=== PATIENT | male | born 1935 | race Caucasian/White ===

== ENCOUNTER 2017-11-26 14:36 | Inpatient (IN) | payer MEDICARE, BC ==
[2017-11-26] MEDS ORDERED: FUROSEMIDE 10 MG/ML 4 ML VIAL IV STA (15:04)
--- NOTE | 2017-11-26 15:11 | ED ---
General Adult HPI - General Chief complaint: Shortness of Breath Stated complaint: Feet swollen going up to waist Time Seen by Provider: 11/26/17 14:54 Source: patient, family, RN notes reviewed Mode of arrival: wheelchair Limitations: no limitations - History of Present Illness Initial comments: Patient is a pleasant 82-year-old male presenting to the emergency department with increasing edema. Patient does have a history of known edema. Symptoms have worsened over the past couple of weeks. Patient is on Lasix already. Patient does admit to having some edema however seems to downplay of symptoms. Patient denies any dyspnea. Patient denies fatigue however feels patient has been more fatigued. - Related Data Allergies Allergy/AdvReac Type Severity Reaction Status Date / Time No Known Allergies Allergy Verified 11/26/17 14:43 Review of Systems ROS Statement: Those systems with pertinent positive or pertinent negative responses have been documented in the HPI. ROS Other: All systems not noted in ROS Statement are negative. Constitutional: Denies: fever Eyes: Denies: eye pain ENT: Denies: ear pain Respiratory: Denies: cough Cardiovascular: Reports: edema. Denies: chest pain Endocrine: Reports: fatigue Gastrointestinal: Denies: abdominal pain Genitourinary: Denies: dysuria Musculoskeletal: Denies: back pain Skin: Denies: rash Neurological: Denies: headache Past Medical History Additional Past Medical History / Comment(s): Heart Failure, CLL History of Any Multi-Drug Resistant Organisms: None Reported Past Surgical History: No Surgical Hx Reported Past Psychological History: No Psychological Hx Reported Smoking Status: Never smoker Past Alcohol Use History: None Reported Past Drug Use History: None Reported General Exam Limitations: no limitations General appearance: alert, in no apparent distress Head exam: Present: atraumatic Eye exam: Present: normal appearance, PERRL ENT exam: Present: normal oropharynx Neck exam: Present: normal inspection Respiratory exam: Present: normal lung sounds bilaterally Cardiovascular Exam: Present: regular rate, normal rhythm GI/Abdominal exam: Absent: tenderness Extremities exam: Present: pedal edema (+3 edema bilaterally that does extend to upper thighs.). Absent: calf tenderness Neurological exam: Present: alert Psychiatric exam: Present: normal affect, normal mood Skin exam: Present: normal color Course Vital Signs 11/26/17 11/26/17 14:40 15:10 Temperature 98.0 F Pulse Rate 75 Respiratory 16 20 Rate Blood Pressure 118/60 O2 Sat by Pulse 92 L Oximetry EKG Findings - EKG Comments: EKG Findings:: Accelerated junctional rhythm with a rate of 82 with frequent PVCs. QRS 92. QT 406. QTc 474. Left axis. Incomplete right bundle-branch block. Septal Q waves. No acute ST change. Medical Decision Making - Medical Decision Making Patient reevaluated and resting comfortably in bed. Patient and family updated on results and plan. Dr. Blanco has been paged for admission. - Radiology Data Radiology results: image reviewed (Chest x-ray shows nonobstructive gas pattern. ) Disposition Clinical Impression: GI hemorrhage Disposition: ADMITTED IP TO THIS HOSP Is patient prescribed a controlled substance at d/c from ED?: No Referrals: Liban Riggs MD [Primary Care Provider] - 1-2 days Decision Time: 15:17
[2017-11-26 15:27] LABS: HCT 36.5 % (39.0-53.0); MCH 31.9 pg (25.0-35.0); MCHC 32.8 g/dL (31.0-37.0); MCV 97.3 fL (80.0-100.0); Mean Platelet Volume 7.8; RBC 3.75 m/uL (4.30-5.90); RDW 15.3 % (11.5-15.5); WBC 9.1 k/uL (3.8-10.6)
[2017-11-26 15:29] LABS: Platelet Count 51 k/uL (150-450)
[2017-11-26 15:32] LABS: INR 1.2 (<1.2); Partial Thromboplastin Time 22.6 sec (22.0-30.0); Prothrombin Time 11.9 sec (9.0-12.0)
[2017-11-26 15:39] LABS: Albumin 3.5 g/dL (3.5-5.0); Potassium 3.2 mmol/L (3.5-5.1); Total Bilirubin 0.8 mg/dL (0.2-1.3); Total Protein 5.3 g/dL (6.3-8.2)
--- NOTE | 2017-11-26 15:43 | XR ---
EXAMINATION TYPE: XR chest 2V DATE OF EXAM: 11/26/2017 COMPARISON: NONE HISTORY: Shortness of breath TECHNIQUE: Frontal and lateral views of the chest are obtained. FINDINGS: Scattered senescent parenchymal changes noted. Hyperinflation compatible with COPD. Bilateral pleural effusions left greater than right with underlying atelectasis and/or infiltrates. Heart size is stable. Mediastinal structures are stable and grossly unremarkable. No evidence for hilar prominence. Degenerative changes dorsal spine. IMPRESSION: 1.Bilateral pleural effusions left greater than right with underlying atelectasis and/or infiltrates.
[2017-11-26 15:46] LABS: Lymphocytes # (M) 6.73 k/uL (1.0-4.8); Monocytes # (M) 0.18 k/uL (0-1.0); Neutrophils # (M) 2.18 k/uL (1.3-7.7); Neutrophils % (M) 24 %; Nucleated Red Blood Cells 0 /100 WBC (0-0); Total Cells Counted 100
[2017-11-26 16:02] LABS: Troponin I 0.289 ng/mL (0.000-0.034)
[2017-11-26 16:06] LABS: Creatine Kinase MB 2.5 ng/mL (0.0-2.4)
--- NOTE | 2017-11-26 16:10 | ED ---
Medical Decision Making - Medical Decision Making Patient reevaluated. Patient and family updated. Case was discussed with Dr. vega with [facility] [place] physician who will admit for hospital call. - Lab Data Result diagrams: 11/26/17 15:06 11/26/17 15:06 Lab Results 11/26/17 11/26/17 11/26/17 Range/Units 15:06 15:06 15:06 WBC 9.1 (3.8-10.6) k/uL RBC 3.75 L (4.30-5.90) m/uL Hgb 12.0 L (13.0-17.5) gm/dL Hct 36.5 L (39.0-53.0) % MCV 97.3 (80.0-100.0) fL MCH 31.9 (25.0-35.0) pg MCHC 32.8 (31.0-37.0) g/dL RDW 15.3 (11.5-15.5) % Plt Count 51 L (150-450) k/uL Neutrophils % (Manual) 24 % Lymphocytes % (Manual) 74 % Monocytes % (Manual) 2 % Neutrophils # (Manual) 2.18 (1.3-7.7) k/uL Lymphocytes # (Manual) 6.73 H (1.0-4.8) k/uL Monocytes # (Manual) 0.18 (0-1.0) k/uL Nucleated RBCs 0 (0-0) /100 WBC Manual Slide Review Performed RBC Morphology Normal PT (9.0-12.0) sec INR (<1.2) APTT (22.0-30.0) sec Sodium 140 (137-145) mmol/L Potassium 3.2 L (3.5-5.1) mmol/L Chloride 96 L (98-107) mmol/L Carbon Dioxide 32 H (22-30) mmol/L Anion Gap 12 mmol/L BUN 34 H (9-20) mg/dL Creatinine 1.01 (0.66-1.25) mg/dL Est GFR (CKD-EPI)AfAm 79 (>60 ml/min/1.73 sqM) Est GFR (CKD-EPI)NonAf 68 (>60 ml/min/1.73 sqM) Glucose 125 H (74-99) mg/dL Calcium 9.0 (8.4-10.2) mg/dL Total Bilirubin 0.8 (0.2-1.3) mg/dL AST 32 (17-59) U/L ALT 26 (21-72) U/L Alkaline Phosphatase 122 (38-126) U/L Total Creatine Kinase 54 L (55-170) U/L CK-MB (CK-2) 2.5 H* (0.0-2.4) ng/mL CK-MB (CK-2) Rel Index 4.6 Troponin I 0.289 H* (0.000-0.034) ng/mL Total Protein 5.3 L (6.3-8.2) g/dL Albumin 3.5 (3.5-5.0) g/dL 11/26/17 Range/Units 15:06 WBC (3.8-10.6) k/uL RBC (4.30-5.90) m/uL Hgb (13.0-17.5) gm/dL Hct (39.0-53.0) % MCV (80.0-100.0) fL MCH (25.0-35.0) pg MCHC (31.0-37.0) g/dL RDW (11.5-15.5) % Plt Count (150-450) k/uL Neutrophils % (Manual) % Lymphocytes % (Manual) % Monocytes % (Manual) % Neutrophils # (Manual) (1.3-7.7) k/uL Lymphocytes # (Manual) (1.0-4.8) k/uL Monocytes # (Manual) (0-1.0) k/uL Nucleated RBCs (0-0) /100 WBC Manual Slide Review RBC Morphology PT 11.9 (9.0-12.0) sec INR 1.2 H (<1.2) APTT 22.6 (22.0-30.0) sec Sodium (137-145) mmol/L Potassium (3.5-5.1) mmol/L Chloride (98-107) mmol/L Carbon Dioxide (22-30) mmol/L Anion Gap mmol/L BUN (9-20) mg/dL Creatinine (0.66-1.25) mg/dL Est GFR (CKD-EPI)AfAm (>60 ml/min/1.73 sqM) Est GFR (CKD-EPI)NonAf (>60 ml/min/1.73 sqM) Glucose (74-99) mg/dL Calcium (8.4-10.2) mg/dL Total Bilirubin (0.2-1.3) mg/dL AST (17-59) U/L ALT (21-72) U/L Alkaline Phosphatase (38-126) U/L Total Creatine Kinase (55-170) U/L CK-MB (CK-2) (0.0-2.4) ng/mL CK-MB (CK-2) Rel Index Troponin I (0.000-0.034) ng/mL Total Protein (6.3-8.2) g/dL Albumin (3.5-5.0) g/dL - Radiology Data Radiology results: image reviewed (Chest x-ray showed bilateral effusions) Disposition Clinical Impression: Congestive heart failure Disposition: ADMITTED IP TO THIS [facility] Condition: Serious Is patient prescribed a controlled substance at d/c from ED?: No Referrals: Liban Riggs MD [Primary Care Provider] - 1-2 days Decision Time: 16:10
[2017-11-26] MEDS ORDERED: NALOXONE 0.4 MG/ML 1 ML VIAL IV PRN (16:59)
[2017-11-26] MEDS ORDERED: ACETAMINOPHEN TAB 325 MG TAB PO PRN (16:59)
[2017-11-26] MEDS ORDERED: ONDANSETRON 4 MG/2 ML VIAL IVP PRN (16:59)
--- NOTE | 2017-11-26 17:18 | P.HPIM ---
History of Present Illness H&P Date: 11/26/17 Chief Complaint: Anasarca Patient is an 82-year-old male with a known history significant for CLL previously on chemotherapy however now in remission, BPH on doxazosin and finasteride, arrhythmia which the patient and do not know what the arrhythmia is, and chronic lower extremity edema of unclear etiology on Lasix 40 mg and metolazone 5 mg daily. Patient presents to the ED complaining of worsening bilateral lower extremity edema which has progressed, today was unable to button up his pants due to anasarca. Patient states he really hasn't been short of breath, only complaint is his increasing edema. In the ED found to have a platelet count decreased at 51, elevated troponin of 0.289, elevated proBNP 8080 and a chest x-ray showing bilateral pleural effusions left-sided greater than right. Patient denies any chest pain or pressure. States she really has been short of breath, pulse ox 92% on room air and was placed on 2 L of oxygen while in the ED. Review of Systems CONSTITUTIONAL: No weight loss, fever, chills HEENT: Eyes: No visual loss, blurred vision, double vision or yellow sclerae. Ears, Nose, Throat: No hearing loss, sneezing, congestion, runny nose or sore throat. SKIN: No rash or itching. CARDIOVASCULAR: No chest pain, chest pressure or chest discomfort. No palpitations. ++ edema. RESPIRATORY: No shortness of breath, cough or sputum. GASTROINTESTINAL: No anorexia, nausea, vomiting or diarrhea. No abdominal pain or blood. GENITOURINARY: No burning on urination. No change in frequency. No change in stream. NEUROLOGICAL: No headache, dizziness, syncope, paralysis, ataxia, numbness or tingling in the extremities. No change in bowel or bladder control. MUSCULOSKELETAL: No muscle, back pain, joint pain or stiffness. HEMATOLOGIC: No anemia, bleeding or bruising. PSYCHIATRIC: No history of depression or anxiety. ENDOCRINOLOGIC: No reports of sweating, cold or heat intolerance. No polyuria or polydipsia. ALLERGIES: No history of asthma, hives, eczema or rhinitis. Past Medical History Past Medical History: Prostate Disorder Additional Past Medical History / Comment(s): Edema of unclear etiology, CLL, unknown arrhythmia History of Any Multi-Drug Resistant Organisms: None Reported Past Surgical History: No Surgical Hx Reported Past Psychological History: No Psychological Hx Reported Smoking Status: Never smoker Past Alcohol Use History: None Reported Past Drug Use History: None Reported - Past Family History Father Family Medical History: No Reported History Medications and Allergies Home Medications Medication Instructions Recorded Confirmed Type Docusate [Colace] 100 mg PO TID 11/26/17 11/26/17 History Doxazosin Mesylate 8 mg PO DAILY 11/26/17 11/26/17 History Finasteride [Proscar] 5 mg PO DAILY@1200 11/26/17 11/26/17 History Furosemide [Lasix] 40 mg PO DAILY 11/26/17 11/26/17 History Metolazone [Zaroxolyn] 5 mg PO DAILY 11/26/17 11/26/17 History Allergies Allergy/AdvReac Type Severity Reaction Status Date / Time No Known Allergies Allergy Verified 11/26/17 15:34 Physical Exam Vitals: Vital Signs Temp Pulse Resp BP Pulse Ox 11/26/17 16:38 72 18 135/74 98 11/26/17 15:43 72 18 127/81 99 11/26/17 15:10 20 11/26/17 14:40 98.0 F 75 16 118/60 92 L Intake and Output 11/26/17 11/26/17 11/26/17 06:59 14:59 22:59 Other: Weight 81.647 kg General: A/O x 3, NAD, Lying in bed comfortably HEENT: EOMI, MMM, atraumatic normocephalic Neck: Supple. No JVD, trachea midline CVS: Irregular rate and rhythm. + S1/S2, no murmurs/gallops/rubs appreciated Respiratory: Bilateral air entry noted. Clear to auscultation, no wheeze, no rhonchi Abdomen: Soft, nontender, nondistended. Bowel sounds audible Extremities: 3+ pitting edema past hips. No clubbing or cyanosis Skin: Bilteral lower extremity venous stasis ulcers Psych: Without hallucinations, abnormal affect, or abnormal behaviors during the examination Results CBC & Chem 7: 11/26/17 15:06 11/26/17 15:06 Labs: Abnormal Lab Results - Last 24 Hours (Table) 11/26/17 11/26/17 11/26/17 Range/Units 15:06 15:06 15:06 RBC 3.75 L (4.30-5.90) m/uL Hgb 12.0 L (13.0-17.5) gm/dL Hct 36.5 L (39.0-53.0) % Plt Count 51 L (150-450) k/uL Lymphocytes # (Manual) 6.73 H (1.0-4.8) k/uL INR (<1.2) Potassium 3.2 L (3.5-5.1) mmol/L Chloride 96 L (98-107) mmol/L Carbon Dioxide 32 H (22-30) mmol/L BUN 34 H (9-20) mg/dL Glucose 125 H (74-99) mg/dL Total Creatine Kinase 54 L (55-170) U/L CK-MB (CK-2) 2.5 H* (0.0-2.4) ng/mL Troponin I 0.289 H* (0.000-0.034) ng/mL Total Protein 5.3 L (6.3-8.2) g/dL 11/26/17 Range/Units 15:06 RBC (4.30-5.90) m/uL Hgb (13.0-17.5) gm/dL Hct (39.0-53.0) % Plt Count (150-450) k/uL Lymphocytes # (Manual) (1.0-4.8) k/uL INR 1.2 H (<1.2) Potassium (3.5-5.1) mmol/L Chloride (98-107) mmol/L Carbon Dioxide (22-30) mmol/L BUN (9-20) mg/dL Glucose (74-99) mg/dL Total Creatine Kinase (55-170) U/L CK-MB (CK-2) (0.0-2.4) ng/mL Troponin I (0.000-0.034) ng/mL Total Protein (6.3-8.2) g/dL Thrombosis Risk Factor Assmnt - DVT/VTE Prophylaxis DVT/VTE Prophylaxis: Mechanical Prophylaxis ordered Assessment and Plan (1) Anasarca Current Visit: Yes Status: Acute Code(s): R60.1 - GENERALIZED EDEMA SNOMED Code(s): 230028671 (2) BPH (benign prostatic hyperplasia) Current Visit: Yes Status: Acute Code(s): N40.0 - BENIGN PROSTATIC HYPERPLASIA WITHOUT LOWER URINRY TRACT SYMP SNOMED Code(s): 261063099 (3) Thrombocytopenia Current Visit: Yes Status: Acute Code(s): D69.6 - THROMBOCYTOPENIA, UNSPECIFIED SNOMED Code(s): 198449046 Plan: Presents with anasarca, is on chronic home diuretics of Lasix and metolazone both daily, 40 mg and 5 mg respectively. Patient and deny an underlying history of congestive heart failure that they know of, states that if he's had an echocardiogram in the past it has been many many years as he has not seen a copy camera operator in the past 5 years. Denies any history of underlying cardiac disease. The patient is clearly volume overloaded at this time, continue with IV Lasix 40 mg 3 times a day that was started in the ED. Monitor ins and outs, daily weights. Check echocardiogram to ascertain the underlying etiology of the anasarca. Currently on 2 L oxygen however no actual documented hypoxia, and patient denies any shortness of breath despite the fluid seen on chest x-ray. Diuresis for the anasarca as above. Wean oxygen off. Continue home doxazosin and finasteride for the BPH. When examined in the ED, patient was having some difficulty urinating. Bladder scan ordered, if patient is retaining will place a Mccrary for diuresis. Thrombocytopenia of unclear etiology. Does have a history of CLL. Check peripheral smear.
[2017-11-26] MEDS: FUROSEMIDE 10 MG/ML 4 ML VIAL IV SCH ×2 (17:39→23:08)
[2017-11-26] MEDS: NITROGLYCERIN OINT 1 INCH/GM PACKET TOPICAL SCH ×2 (18:06→20:18)
[2017-11-26] MEDS: DOCUSATE 100 MG CAP PO SCH (20:17)
[2017-11-27 06:04] LABS: Calcium 9.2 mg/dL (8.4-10.2); Potassium 3.2 mmol/L (3.5-5.1)
[2017-11-27 06:39] LABS: HCT 35.6 % (39.0-53.0); HGB 11.1 gm/dL (13.0-17.5); Hypochromasia Slight; MCH 30.4 pg (25.0-35.0); MCV 97.9 fL (80.0-100.0); Mean Platelet Volume 8.6; RBC 3.64 m/uL (4.30-5.90); RDW 14.9 % (11.5-15.5)
[2017-11-27 06:46] LABS: Platelet Count 45 k/uL (150-450)
[2017-11-27] MEDS ORDERED: POTASSIUM CHLORIDE ER 20 MEQ TAB.ER PO STA (07:02)
[2017-11-27] MEDS: DOCUSATE 100 MG CAP PO SCH ×3 (08:10→20:29)
[2017-11-27] MEDS: FUROSEMIDE 10 MG/ML 4 ML VIAL IV SCH ×2 (08:11→20:29)
[2017-11-27] MEDS: NITROGLYCERIN OINT 1 INCH/GM PACKET TOPICAL SCH (08:11)
[2017-11-27] MEDS ORDERED: DOXAZOSIN 4 MG TAB PO SCH (09:00)
[2017-11-27 09:33] LABS: Band Neutrophils % 1 %; Basophils # (M) 0.09 k/uL (0-0.2); Lymphocytes # (M) 6.66 k/uL (1.0-4.8); Monocytes # (M) 0.45 k/uL (0-1.0); Neutrophils % (M) 19 %; Nucleated Red Blood Cells 0 /100 WBC (0-0); Total Cells Counted 100
[2017-11-27 09:34] LABS: Poikilocytosis (M) Present
--- NOTE | 2017-11-27 09:38 | P.CRDCN ---
History of Present Illness Consult date: 11/27/17 Requesting physician: Leonardo Perdomo Consult reason: congestive heart failure Chief complaint: Bilateral leg and abdominal swelling History of present illness: This is a pleasant 82-year-old gentleman, history is obtained from the medical records, he is quite confused, does not know why he is here does not know of his medical history. According to the medical record, patient does have a significant history for CLL previously on chemotherapy, BPH, some form of arrhythmia, not on anticoagulation, chronic lower extremity erythema and swelling. He was brought to the hospital because of significant swelling in his bilateral legs and abdomen. The patient apparently was not having any symptoms of difficulty in breathing. His chest x-ray on admission here showed bilateral pleural effusions left greater than the right, with underlying atelectasis and/or infiltrates. EKG shows atrial fibrillation with occasional PVC. Blood pressure 118/60 with a heart rate in the 70s, 92% on room air. White blood cell count 9.0, hemoglobin 12.0 on admission, 11.1 this morning. Platelet count 51 on admission, 45 this morning. Sodium 142, potassium 3.2, BUN 36, creatinine 1.0. Troponins 0.28, .039. BNP level 8080. The patient was initiated on IV Lasix in the emergency room, his weight is down 2 kg today. Continues to have a bilateral peripheral edema, according to the patient it is much better than when he came. Past Medical History Past Medical History: Prostate Disorder Additional Past Medical History / Comment(s): Edema of unclear etiology, CLL, unknown arrhythmia History of Any Multi-Drug Resistant Organisms: None Reported Past Surgical History: No Surgical Hx Reported Past Anesthesia/Blood Transfusion Reactions: No Reported Reaction Past Psychological History: No Psychological Hx Reported Smoking Status: Never smoker Past Alcohol Use History: None Reported Past Drug Use History: None Reported - Past Family History Mother Family Medical History: CVA/TIA Father Family Medical History: Congestive Heart Failure (CHF) Medications and Allergies Home Medications Medication Instructions Recorded Confirmed Type Docusate [Colace] 100 mg PO TID 11/26/17 11/26/17 History Doxazosin Mesylate 8 mg PO DAILY 11/26/17 11/26/17 History Finasteride [Proscar] 5 mg PO DAILY@1200 11/26/17 11/26/17 History Furosemide [Lasix] 40 mg PO DAILY 11/26/17 11/26/17 History Metolazone [Zaroxolyn] 5 mg PO DAILY 11/26/17 11/26/17 History Allergies Allergy/AdvReac Type Severity Reaction Status Date / Time No Known Allergies Allergy Verified 11/26/17 15:34 Physical Exam Vitals: Vital Signs Temp Pulse Pulse Resp BP BP Pulse Ox 11/27/17 08:30 97.6 F 95 16 116/63 98 11/27/17 03:52 71 17 11/27/17 03:50 98.3 F 71 17 101/64 97 11/27/17 00:00 97.3 F L 81 18 97/55 93 L 11/26/17 20:00 97.8 F 70 18 109/60 99 11/26/17 17:29 97.5 F L 69 16 127/75 94 L 11/26/17 16:48 97.7 F 69 16 127/75 94 L 11/26/17 16:38 72 18 135/74 98 11/26/17 15:43 72 18 127/81 99 11/26/17 15:10 20 11/26/17 14:40 98.0 F 75 16 118/60 92 L Intake and Output 11/26/17 11/27/17 11/27/17 22:59 06:59 14:59 Intake Total 160 240 Output Total 800 Balance 160 -800 240 Intake: Oral 160 240 Output: Urine 800 Other: Voiding Method Urinal Urinal Urinal # Voids 1 Weight 88.9 kg 86.7 kg PHYSICAL EXAMINATION: HEENT: Head is atraumatic, normocephalic. Pupils equal, round. Neck is supple. There is no elevated jugular venous pressure. HEART EXAMINATION: Heart S1 and S2 irregularly irregular a systolic murmur is heard. CHEST EXAMINATION: Lungs revealed diminished air entry to bilateral bases. ABDOMEN: Soft, mild distention, nontender. Bowel sounds are heard. No organomegaly noted. EXTREMITIES:[ 2+ peripheral pulses with 2+ evidence of peripheral edema , to the lower extremities, evidence of chronic erythema and dry skin noted. NEUROLOGIC patient is awake, alert and oriented -1. . Results 11/27/17 05:36 11/27/17 05:36 Cardiac Enzymes 11/26/17 11/26/17 11/27/17 Range/Units 15:06 15:06 05:36 AST 32 (17-59) U/L CK-MB (CK-2) 2.5 H* (0.0-2.4) ng/mL Troponin I 0.289 H* 0.396 H* (0.000-0.034) ng/mL Coagulation 11/26/17 Range/Units 15:06 PT 11.9 (9.0-12.0) sec APTT 22.6 (22.0-30.0) sec CBC 11/26/17 11/27/17 Range/Units 15:06 05:36 WBC 9.1 9.0 (3.8-10.6) k/uL RBC 3.75 L 3.64 L (4.30-5.90) m/uL Hgb 12.0 L 11.1 L (13.0-17.5) gm/dL Hct 36.5 L 35.6 L (39.0-53.0) % Plt Count 51 L 45 L* (150-450) k/uL Comprehensive Metabolic Panel 11/26/17 11/27/17 Range/Units 15:06 05:36 Sodium 140 142 (137-145) mmol/L Potassium 3.2 L 3.2 L (3.5-5.1) mmol/L Chloride 96 L 94 L (98-107) mmol/L Carbon Dioxide 32 H 38 H (22-30) mmol/L BUN 34 H 36 H (9-20) mg/dL Creatinine 1.01 1.00 (0.66-1.25) mg/dL Glucose 125 H 103 H (74-99) mg/dL Calcium 9.0 9.2 (8.4-10.2) mg/dL AST 32 (17-59) U/L ALT 26 (21-72) U/L Alkaline Phosphatase 122 (38-126) U/L Total Protein 5.3 L (6.3-8.2) g/dL Albumin 3.5 (3.5-5.0) g/dL Current Medications Generic Name Dose Route Start Last Admin Trade Name Freq PRN Reason Stop Dose Admin Acetaminophen 650 mg 11/26/17 16:59 Tylenol Tab PO Q6HR PRN Mild Pain or Fever > 100.5 Docusate Sodium 100 mg 11/26/17 22:00 04/23/18 08:10 Colace PO 100 mg TID MARSHALL Administration Doxazosin Mesylate 8 mg 11/27/17 09:00 11/27/17 08:10 Cardura PO 8 mg DAILY MARSHALL Administration Finasteride 5 mg 11/27/17 12:00 Proscar PO DAILY@1200 MARSHALL Furosemide 40 mg 11/27/17 09:00 11/27/17 08:11 Lasix IV 40 mg Q12HR MARSHALL Administration Naloxone HCl 0.2 mg 11/26/17 16:59 Narcan IV Q2M PRN Opioid Reversal Nitroglycerin 1 inch 11/26/17 18:00 11/27/17 08:11 Nitro-Bid Oint TOPICAL 1 inch QID MARSHALL Administration Ondansetron HCl 4 mg 11/26/17 16:59 Zofran IVP Q8HR PRN Nausea And Vomiting Sodium Chloride 10 ml 11/26/17 21:00 11/26/17 20:18 Saline Flush IV 10 ml BID MARSHALL Administration Intake and Output 11/26/17 11/27/17 11/27/17 22:59 06:59 14:59 Intake Total 160 240 Output Total 800 Balance 160 -800 240 Intake: Oral 160 240 Output: Urine 800 Other: Voiding Method Urinal Urinal Urinal # Voids 1 Weight 88.9 kg 86.7 kg 11/27/17 05:36 11/27/17 05:36 EKG Interpretations (text) EKG shows atrial fibrillation with occasional PVC. Assessment and Plan Plan: Assessment and plan #1 Symptoms of significant bilateral lower extremity and abdominal swelling with no overt symptoms of shortness of breath, BNP elevated at 8080. Mild Congestive heart failure, LV function unknown. Chest x-ray shows bilateral pleural effusions, left greater than the right. #2 history of CLL with prior chemotherapy #3 thrombocytopenia #4 BPH #5 chronic persistent atrial fibrillation, not on anticoagulation. #6 mild troponin abnormality, patient denies chest discomfort. EKG shows atrial fibrillation with occasional PVC. #7 hypokalemia #8 dementia Plan We will obtain an echocardiogram with Doppler study. Continue current dose of IV Lasix, monitoring the intake and output along with daily weights. We will also speak with the to verify history, it is likely that patient is not a candidate for anticoagulation for his atrial fibrillation. Patient is also not on a baby aspirin, likely secondary to thrombocytopenia. We will discontinue the Nitropaste. Initiate low-dose beta georgie. Further recommendations to follow. DNP note has been reviewed, I agree with a documented findings and plan of care. Patient was seen and examined.
--- NOTE | 2017-11-27 10:51 | P.PN ---
Progress Note - Text This is an addendum to the dictated cardiology consultation. The patient has a known history of chronic persistent atrial fibrillation who presents with symptoms progressive dyspnea and weight gain in addition to significant peripheral edema ,the history is obtained from the , the patient has dementia. He has prior history of peripheral edema and has been treated with diuretics. According to the family he used to be on Coumadin and that was stopped and he is off his aspirin as well. He has no history of CAD or CHF according to the family. His level of activity is quite limited. His examination shows decreased breath sounds at the bases, he is in atrial fibrillation with a systolic murmur at the base, he has 2+ peripheral edema with chronic skin changes and erythema. The patient presents with CHF. His left ventricle systolic function is unknown. He has chronic persistent atrial fibrillation. I will obtain an echocardiogram with Doppler to evaluate his systolic function, continue IV diuresis and follow his renal function closely. He'll be started on the low dose of beta georgie and RUBY inhibitor. I discussed with the patient and his family the option of anticoagulation, the risk of thromboembolic phenomenon. They are in favor of anticoagulation and he'll be started on Eliquis 2.5 milligrams twice a day. Depending on the results of the testing further recommendations will be made. Thank you for this consult we will follow with you.
--- NOTE | 2017-11-27 10:53 | ECHOF ---
Referral Reason:heart failure MEASUREMENTS -------- HEIGHT: 182.9 cm WEIGHT: 86.6 kg BP: 101/64 RVIDd: 3.3 cm (< 3.3) IVSd: 1.8 cm (0.6 - 1.1) LVIDd: 3.9 cm (3.9 - 5.3) LVPWd: 2.1 cm (0.6 - 1.1) IVSs: 1.9 cm LVIDs: 3.3 cm LVPWs: 2.0 cm LA Diam: 5.5 cm (2.7 - 3.8) LAESV Index (A-L): 79.19 ml/m Ao Diam: 3.7 cm (2.0 - 3.7) AV Cusp: 2.0 cm (1.5 - 2.6) LA Diam: 5.7 cm (2.7 - 3.8) MV EXCURSION: 22.213 mm (> 18.000) MV EF SLOPE: 138 mm/s (70 - 150) EPSS: 0.4 cm MV E Rishi: 0.58 m/s MV DecT: 121 ms MV A Rishi: 0.20 m/s MV E/A Ratio: 2.94 RAP: 15.00 mmHg RVSP: 52.57 mmHg FINDINGS -------- Sinus rhythm. This was a technically good study. The left ventricular size is normal. There is severe concentric left ventricular hypertrophy. Ove rall left ventricular systolic function is low-normal with, an EF between 50 - 55 %. The right ventricle is normal in size. The left atrium is markedly dilated. LA is severely dilated >40 ml/m2 The right atrium is mildly enlarged. ASD VS PFO. The aortic valve is trileaflet, and appears structurally normal. No aortic stenosis or regurgitation. Mild mitral annular calcification present. Mild mitral regurgitation is present. Mild tricuspid regurgitation present. There is moderate pulmonary hypertension. The right ventric ular systolic pressure, as measured by Doppler, is 52.57mmHg. Trace/mild (physiologic) pulmonic regurgitation. There is no pericardial effusion. Large Pleural Effusion. CONCLUSIONS -------- 1. The left ventricular size is normal. 2. There is severe concentric left ventricular hypertrophy. 3. Overall left ventricular systolic function is low-normal with, an EF between 50 - 55 %. 4. The left atrium is markedly dilated. 5. LA is severely dilated >40 ml/m2 6. The right atrium is mildly enlarged. 7. ASD VS PFO. 8. The aortic valve is trileaflet, and appears structurally normal. No aortic stenosis or regurgitati on. 9. Mild mitral annular calcification present. 10. Mild mitral regurgitation is present. 11. Mild tricuspid regurgitation present. 12. There is moderate pulmonary hypertension. 13. The right ventricular systolic pressure, as measured by Doppler, is 52.57mmHg. 14. Trace/mild (physiologic) pulmonic regurgitation. 15. There is no pericardial effusion. 16. Large Pleural Effusion. 2ND PRESSMAN: Raven Akers RDCS
[2017-11-27] MEDS: FINASTERIDE 5 MG TAB PO SCH (11:42)
[2017-11-27] MEDS: LISINOPRIL 2.5 MG TAB PO SCH (11:43)
[2017-11-27] MEDS: APIXABAN 2.5 MG TABLET PO SCH ×2 (11:43→20:29)
[2017-11-27 13:54] VITALS: BMI 23.8
[2017-11-27] MEDS ORDERED: POTASSIUM BICARBONATE/CIT AC 20 MEQ TABLET.EFF PO ONE (15:59)
--- NOTE | 2017-11-27 16:01 | P.PN ---
Subjective Progress Note Date: 11/27/17 Principal diagnosis: Swelling Patient is an 82-year-old male with a past medical history of CLL, BPH , and atrial fibrillation who presented to the emergency department with complaints of lower extremity edema. At home he had been on Lasix and metallic also but swelling had gotten worse. He had seen his outpatient physician approximately a month ago and was referred to cardiology. On arrival to the ER his initial vital signs were within normal limits. Laboratory analysis showed anemia with thrombocytopenia. He was also found have slight hypokalemia. His troponin was mildly elevated at 0.289. BNP was elevated at 8080 and chest x- ray showed possible pulmonary venous congestion. He was started on IV Lasix and admitted to the selective care unit. Cardiology was consulted and 2-D echocardiogram was ordered. Cardiology suggested low-dose beta georgie and awaiting echocardiogram. On the morning of 11/26 his edema had significantly improved his feeling better. Patient seen and examined at bedside. He is not able to comprehend our conversation and answers questions for him. She tells me he would not be able to follow this conversation at baseline. They noticed increasing swelling over the last month and therefore primary care doctor had referred him to cardiology. He denies any chest pain shortness of breath nausea or vomiting. She states his edema has significantly improved after admission. He has seen Dr. Desir in the past for CLL, but has not had any recent blood work. Objective - Vital Signs Vital signs: Vital Signs Temp 97.6 F 11/27/17 12:01 Pulse 95 11/27/17 12:01 Resp 17 11/27/17 12:01 BP 95/62 11/27/17 12:01 Pulse Ox 98 11/27/17 12:01 Intake & Output 11/26/17 11/27/17 11/27/17 18:59 06:59 18:59 Intake Total 160 480 Output Total 800 800 Balance 160 -800 -320 Weight 88.9 kg 86.7 kg 86.7 kg Intake: Oral 160 480 Output: Urine 800 800 Other: Voiding Method Urinal Urinal # Voids 1 - Labs CBC & Chem 7: 11/27/17 05:36 11/27/17 05:36 Labs: Abnormal Lab Results - Last 24 Hours (Table) 11/26/17 11/26/17 11/26/17 Range/Units 15:06 15:06 15:06 RBC 3.75 L (4.30-5.90) m/uL Hgb 12.0 L (13.0-17.5) gm/dL Hct 36.5 L (39.0-53.0) % Plt Count 51 L (150-450) k/uL Lymphocytes # (Manual) 6.73 H (1.0-4.8) k/uL Potassium 3.2 L (3.5-5.1) mmol/L Chloride 96 L (98-107) mmol/L Carbon Dioxide 32 H (22-30) mmol/L BUN 34 H (9-20) mg/dL Glucose 125 H (74-99) mg/dL Total Creatine Kinase 54 L (55-170) U/L CK-MB (CK-2) 2.5 H* (0.0-2.4) ng/mL Troponin I 0.289 H* (0.000-0.034) ng/mL Total Protein 5.3 L (6.3-8.2) g/dL 11/27/17 11/27/17 11/27/17 Range/Units 05:36 05:36 05:36 RBC 3.64 L (4.30-5.90) m/uL Hgb 11.1 L (13.0-17.5) gm/dL Hct 35.6 L (39.0-53.0) % Plt Count 45 L* (150-450) k/uL Lymphocytes # (Manual) 6.66 H (1.0-4.8) k/uL Potassium 3.2 L (3.5-5.1) mmol/L Chloride 94 L (98-107) mmol/L Carbon Dioxide 38 H (22-30) mmol/L BUN 36 H (9-20) mg/dL Glucose 103 H (74-99) mg/dL Total Creatine Kinase (55-170) U/L CK-MB (CK-2) (0.0-2.4) ng/mL Troponin I 0.396 H* (0.000-0.034) ng/mL Total Protein (6.3-8.2) g/dL Assessment and Plan Assessment: Acute exacerbation of diastolic CHF with ejection fraction 50-55%. -Lasix, strict I's and O's, daily weight - lisinopril, metoprolol - heart healthy diet - metolazone Chronic atrial fibrillation - cardio recommended Eliquis may need to reconsider with low platelets and dementia - Telel - metoprolol Elevated troponin - not dignositic of cardiac ischemia - no ASA secondary to thrombocytopenia - echo without significant abnormality. Anemia and thrombocytopenia with hx of CLL - d/w pathology either likely viral exposure vs quiescent CLL - obtain baseline CBC and then follow up with Dr. Desir. Hypokalemia - replace and recheck in AM AST versus PFO - cardio recs BPH - doxazosin Poor balance per - PT/OT eval Dementia - safe and supportive environment DVT prophylaxis: Eliquis Discussed with: Patient, , RN Anticipated discharge: 24-[address]: home with home health A total of 35 minutes was spent on the care of this complex patient more than 50 % of the time was spent in counseling and care coordination.
[2017-11-27] MEDS: METOPROLOL TARTRATE 12.5 MG TAB PO SCH (20:29)
[2017-11-27 22:25] LABS: Appearance,Urine Clear (Clear); Bilirubin,Urine Negative (Negative); Blood,Urine Negative (Negative); Color,Urine Light Yellow; Glucose,Urine (UA) Negative (Negative); Ketones,Urine Negative (Negative); Leukocyte Esterase,Urine Negative (Negative); Nitrite,Urine Negative (Negative); PH, Urine 7.5 (5.0-8.0); Protein,Urine Negative (Negative); Specific Gravity,Urine 1.007 (1.001-1.035); Urobilinogen,Urine <2.0 mg/dL (<2.0)
[2017-11-28 00:08] LABS: Magnesium 2.2 mg/dL (1.6-2.3); Potassium 3.4 mmol/L (3.5-5.1)
[2017-11-28] MEDS ORDERED: POTASSIUM CHLORIDE ER 20 MEQ TAB.ER PO STA (00:54)
[2017-11-28 06:28] LABS: INR 1.3 (<1.2); Prothrombin Time 12.2 sec (9.0-12.0)
[2017-11-28 06:50] LABS: Albumin 3.4 g/dL (3.5-5.0); Magnesium 2.3 mg/dL (1.6-2.3); Phosphorus 3.4 mg/dL (2.5-4.5); Potassium 4.1 mmol/L (3.5-5.1); Total Bilirubin 0.9 mg/dL (0.2-1.3); Total Protein 5.2 g/dL (6.3-8.2)
[2017-11-28 06:55] LABS: Basophils # (A) 0.1 k/uL (0-0.2); Basophils % (A) 1 %; Eosinophils # (A) 0.1 k/uL (0-0.7); Eosinophils % (A) 1 %; HCT 35.6 % (39.0-53.0); HGB 11.2 gm/dL (13.0-17.5); Lymphocytes % (A) 68 %; MCH 31.1 pg (25.0-35.0); MCHC 31.5 g/dL (31.0-37.0); MCV 98.9 fL (80.0-100.0); Macrocytosis Slight; Mean Platelet Volume 8.6; Monocytes # (A) 0.4 k/uL (0-1.0); Monocytes % (A) 4 %; Neutrophils # (A) 2.4 k/uL (1.3-7.7); Neutrophils % (A) 23 %; RDW 15.3 % (11.5-15.5); WBC 10.3 k/uL (3.8-10.6)
[2017-11-28 06:56] LABS: Platelet Count 48 k/uL (150-450)
[2017-11-28] MEDS: DOCUSATE 100 MG CAP PO SCH ×2 (08:06→20:30)
[2017-11-28] MEDS: LISINOPRIL 2.5 MG TAB PO SCH (08:06)
[2017-11-28] MEDS: APIXABAN 2.5 MG TABLET PO SCH (08:06)
[2017-11-28] MEDS: DOXAZOSIN 4 MG TAB PO SCH (08:06)
[2017-11-28] MEDS: FUROSEMIDE 10 MG/ML 4 ML VIAL IV SCH ×2 (08:14→16:01)
[2017-11-28] MEDS: POTASSIUM CHLORIDE ER 20 MEQ TAB.ER PO SCH (08:14)
[2017-11-28] MEDS: METOPROLOL TARTRATE 12.5 MG TAB PO SCH ×2 (08:14→20:30)
[2017-11-28 09:44] LABS: Poikilocytosis (M) Present
[2017-11-28] MEDS: METOLAZONE 5 MG TAB PO SCH (10:41)
[2017-11-28] MEDS: FINASTERIDE 5 MG TAB PO SCH (10:41)
[2017-11-28] MEDS: AMMONIUM LACTATE 12% CREAM 140 GM TUBE TOPICAL SCH ×2 (10:42→20:30)
--- NOTE | 2017-11-28 14:23 | P.PN ---
Subjective Progress Note Date: 11/28/17 Principal diagnosis: Swelling Patient is an 82-year-old male with a past medical history of CLL, BPH , and atrial fibrillation who presented to the emergency department with complaints of lower extremity edema. At home he had been on Lasix and metolazone but his swelling had gotten worse. He had seen his outpatient physician approximately a month ago and was referred to cardiology. On arrival to the ER his initial vital signs were within normal limits. Laboratory analysis showed anemia with thrombocytopenia. He was also found have slight hypokalemia. His troponin was mildly elevated at 0.289. BNP was elevated at 8080 and chest x-ray showed possible pulmonary venous congestion. He was started on IV Lasix and admitted to the selective care unit. Cardiology was consulted and 2-D echocardiogram was ordered. Cardiology suggested low-dose beta georgie and awaiting echocardiogram. On the morning of 11/27 his edema had significantly improved his feeling better. Echo demonstrated Severe LVH and moderate pulmonary HTN. Cardiology had suggested eliquis, with his dementia and thrombocytopenia and history of CLL hematology was consulted and recommended no eliquis at his current plt level. He will be seen by pt and ot for eval. Patient seen and examined at bedside. No family is present and he is A and O to self. He denies chest pain and shortness of breath. He states that his leg swelling is getting better. No nausea, diarrhea, or dizziness. Objective - Vital Signs Vital signs: Vital Signs Temp 96.9 F L 11/28/17 08:19 Pulse 67 11/28/17 08:19 Resp 16 11/28/17 08:19 BP 105/64 11/28/17 08:19 Pulse Ox 94 L 11/28/17 10:15 Intake & Output 11/27/17 11/28/17 11/28/17 18:59 06:59 18:59 Intake Total 840 120 350 Output Total 800 300 Balance 40 -180 350 Weight 86.7 kg 84.1 kg Intake: Oral 840 120 350 Output: Urine 800 300 Other: Voiding Method Urinal Toilet Toilet Urinal Urinal # Voids 1 1 - Exam General: [non toxic], [mild distress], [appears at stated age] Derm: [warm], [dry] Head: [atraumatic], [normocephalic], [symmetric] Eyes: [EOMI], [no lid lag], [anicteric sclera] Mouth: [no lip lesion], [mucus membranes moist] Cardiovascular: [S1S2 reg], [no murmur], [positive posterior tibial pulse bilateral], Lungs: [CTA bilateral], [no rhonchi, no rales] , [no accessory muscle use] Abdominal: [soft], [ nontender to palpation], [no guarding], [no appreciable organomegaly] Ext: [no gross muscle atrophy], [no edema], [no contractures] Neuro: [ CN II-XI grossly intact], [no focal neuro deficits] Psych: [Alert], [oriented], [appropriate affect] - Labs CBC & Chem 7: 11/28/17 05:43 11/28/17 05:43 Labs: Abnormal Lab Results - Last 24 Hours (Table) 11/27/17 11/28/17 11/28/17 Range/Units 23:32 05:43 05:43 RBC 3.60 L (4.30-5.90) m/uL Hgb 11.2 L (13.0-17.5) gm/dL Hct 35.6 L (39.0-53.0) % Plt Count 48 L* (150-450) k/uL Lymphocytes # 7.0 H (1.0-4.8) k/uL PT 12.2 H (9.0-12.0) sec INR 1.3 H (<1.2) Potassium 3.4 L (3.5-5.1) mmol/L Chloride (98-107) mmol/L Carbon Dioxide (22-30) mmol/L BUN (9-20) mg/dL Total Protein (6.3-8.2) g/dL Albumin (3.5-5.0) g/dL 11/28/17 Range/Units 05:43 RBC (4.30-5.90) m/uL Hgb (13.0-17.5) gm/dL Hct (39.0-53.0) % Plt Count (150-450) k/uL Lymphocytes # (1.0-4.8) k/uL PT (9.0-12.0) sec INR (<1.2) Potassium (3.5-5.1) mmol/L Chloride 93 L (98-107) mmol/L Carbon Dioxide 39 H (22-30) mmol/L BUN 37 H (9-20) mg/dL Total Protein 5.2 L (6.3-8.2) g/dL Albumin 3.4 L (3.5-5.0) g/dL Assessment and Plan Assessment: Acute exacerbation of diastolic CHF with ejection fraction 50-55%. - Lasix, strict I's and O's, daily weight - lisinopril, metoprolol - heart healthy diet - metolazone Chronic atrial fibrillation - Telel - metoprolol - No eliquis wit Plt <50 and discussion with hematology Elevated troponin - not diagnostic of cardiac ischemia - no ASA secondary to thrombocytopenia - echo without significant abnormality. Anemia and thrombocytopenia with hx of CLL - d/w pathology either likely viral exposure vs quiescent CLL - Hematology recs - no eliquis due to Plt < 50, age, and bruising currently. OK for baby ASA AST versus PFO - cardio recs BPH - doxazosin Poor balance per - PT/OT eval Dementia - safe and supportive environment Hypokalemia, resolved DVT prophylaxis: Eliquis Discussed with: Patient, , RN Anticipated discharge: 24-[address]: home with home health A total of 35 minutes was spent on the care of this complex patient more than 50 % of the time was spent in counseling and care coordination.
--- NOTE | 2017-11-28 16:06 | P.PN ---
Subjective Progress Note Date: 11/28/17 This is a pleasant 82-year-old gentleman, history is obtained from the medical records, he is quite confused, does not know why he is here does not know of his medical history. According to the medical record, patient does have a significant history for CLL previously on chemotherapy, BPH, some form of arrhythmia, not on anticoagulation, chronic lower extremity erythema and swelling. He was brought to the hospital because of significant swelling in his bilateral legs and abdomen. The patient apparently was not having any symptoms of difficulty in breathing. His chest x-ray on admission here showed bilateral pleural effusions left greater than the right, with underlying atelectasis and/or infiltrates. EKG shows atrial fibrillation with occasional PVC. Blood pressure 118/60 with a heart rate in the 70s, 92% on room air. White blood cell count 9.0, hemoglobin 12.0 on admission, 11.1 this morning. Platelet count 51 on admission, 45 this morning. Sodium 142, potassium 3.2, BUN 36, creatinine 1.0. Troponins 0.28, .039. BNP level 8080. The patient was initiated on IV Lasix in the emergency room, his weight is down 2 kg today. Continues to have a bilateral peripheral edema, according to the patient it is much better than when he came. 11/28/2017 Patient seen and examined today, continues to diurese well on IV Lasix. Hemodynamically stable. Echocardiogram with Doppler study was performed which revealed an ejection fraction of 50-55%. There is mention of an ASD versus PFO noted on the echo, we will continue current medical therapy. Objective - Vital Signs Vital signs: Vital Signs Temp 97.6 F 11/28/17 12:00 Pulse 68 11/28/17 12:00 Resp 18 11/28/17 12:00 BP 91/58 11/28/17 12:00 Pulse Ox 97 11/28/17 12:00 Intake & Output 11/27/17 11/28/17 11/28/17 18:59 06:59 18:59 Intake Total 840 120 750 Output Total 800 300 Balance 40 -180 750 Weight 86.7 kg 84.1 kg Intake: Oral 840 120 750 Output: Urine 800 300 Other: Voiding Method Urinal Toilet Toilet Urinal Urinal # Voids 1 1 - Exam PHYSICAL EXAMINATION: HEENT: Head is atraumatic, normocephalic. Pupils equal, round. Neck is supple. There is no elevated jugular venous pressure. HEART EXAMINATION: Heart S1 and S2 irregularly irregular a systolic murmur is heard. CHEST EXAMINATION: Lungs revealed diminished air entry to bilateral bases. ABDOMEN: Soft, mild distention, nontender. Bowel sounds are heard. No organomegaly noted. EXTREMITIES:[ 2+ peripheral pulses with 1+ evidence of peripheral edema , to the lower extremities, evidence of chronic erythema and dry skin noted. NEUROLOGIC patient is awake, alert and oriented -1. . - Labs CBC & Chem 7: 11/28/17 05:43 11/28/17 05:43 Labs: Abnormal Lab Results - Last 24 Hours (Table) 11/27/17 11/28/17 11/28/17 Range/Units 23:32 05:43 05:43 RBC 3.60 L (4.30-5.90) m/uL Hgb 11.2 L (13.0-17.5) gm/dL Hct 35.6 L (39.0-53.0) % Plt Count 48 L* (150-450) k/uL Lymphocytes # 7.0 H (1.0-4.8) k/uL PT 12.2 H (9.0-12.0) sec INR 1.3 H (<1.2) Potassium 3.4 L (3.5-5.1) mmol/L Chloride (98-107) mmol/L Carbon Dioxide (22-30) mmol/L BUN (9-20) mg/dL Total Protein (6.3-8.2) g/dL Albumin (3.5-5.0) g/dL 11/28/17 Range/Units 05:43 RBC (4.30-5.90) m/uL Hgb (13.0-17.5) gm/dL Hct (39.0-53.0) % Plt Count (150-450) k/uL Lymphocytes # (1.0-4.8) k/uL PT (9.0-12.0) sec INR (<1.2) Potassium (3.5-5.1) mmol/L Chloride 93 L (98-107) mmol/L Carbon Dioxide 39 H (22-30) mmol/L BUN 37 H (9-20) mg/dL Total Protein 5.2 L (6.3-8.2) g/dL Albumin 3.4 L (3.5-5.0) g/dL Assessment and Plan Plan: Assessment and plan #1 Symptoms of significant bilateral lower extremity and abdominal swelling with no overt symptoms of shortness of breath, BNP elevated at 8080. Mild Congestive heart failure, diastolic acute on chronic. Chest x-ray shows bilateral pleural effusions, left greater than the right. #2 history of CLL with prior chemotherapy #3 thrombocytopenia #4 BPH #5 chronic persistent atrial fibrillation, not on anticoagulation. #6 mild troponin abnormality, patient denies chest discomfort. EKG shows atrial fibrillation with occasional PVC. #7 hypokalemia #8 dementia Plan Echocardiogram with Doppler study was performed itch revealed an ejection fraction of 50-55%, evidence of ASD versus PFO. Large pleural effusion. Moderate pulmonary hypertension. From cardiology's perspective, we will recommend to continue current dose of IV Lasix for 24 hours. Check lytes BUN and creatinine in the morning as well as daily weights and intake and output. We will also repeat a chest x-ray tomorrow. DNP note has been reviewed, I agree with a documented findings and plan of care. Patient was seen and examined.
--- NOTE | 2017-11-28 22:44 | P.CONS ---
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 He has been on f/u since. He as not f/u in the office since 2012. Since his chemo, he has had chronicaly low plt in the 50-60 range, with no symptoms. His hgb in 2013 was 13.5. The pt was admitted this time with worsening LE edema, and redness, over the past 4-5 days. There was no associated SOB over baseline. He was noted to have mild troponin elevation, and was admitted with COPD exacerbation. His plt count on admission was 51, with Hgb 12. Plt count dropped to 45 and is 48 today. Hgb dropped and stabilised in the 11 range. WBC was actually normal ( 9-10) with mild absolute lymphocytosis in the 6-7000 range Consult was thus placed for further evaluation and recommendatons. Review of Systems Constitutional: Reports fatigue Eyes: denies blurred vision, denies pain Ears: deny: decreased hearing, ear discharge, earache, tinnitus Ears, nose, mouth and throat: Denies headache, Denies sore throat Cardiovascular: Reports decreased exercise tolerance, Reports edema Respiratory: Denies cough Gastrointestinal: Denies abdominal pain, Denies diarrhea, Denies nausea, Denies vomiting Genitourinary: Reports urinary frequency Musculoskeletal: Denies myalgias Integumentary: Reports color changes (B/L LE) Neurological: Reports memory loss, Reports weakness Psychiatric: Reports memory loss Endocrine: Reports fatigue, Denies weight change Hematologic/Lymphatic: Reports as per HPI Past Medical History Past Medical History: Prostate Disorder Additional Past Medical History / Comment(s): Edema of unclear etiology, CLL, unknown arrhythmia History of Any Multi-Drug Resistant Organisms: None Reported Past Surgical History: No Surgical Hx Reported Past Anesthesia/Blood Transfusion Reactions: No Reported Reaction Past Psychological History: No Psychological Hx Reported Smoking Status: Never smoker Past Alcohol Use History: None Reported Past Drug Use History: None Reported - Past Family History Mother Family Medical History: CVA/TIA Father Family Medical History: Congestive Heart Failure (CHF) Medications and Allergies Home Medications Medication Instructions Recorded Confirmed Type Docusate [Colace] 100 mg PO TID 11/26/17 11/26/17 History Doxazosin Mesylate 8 mg PO DAILY 11/26/17 11/26/17 History Finasteride [Proscar] 5 mg PO DAILY@1200 11/26/17 11/26/17 History Furosemide [Lasix] 40 mg PO DAILY 11/26/17 11/26/17 History Metolazone [Zaroxolyn] 5 mg PO DAILY 11/26/17 11/26/17 History Allergies Allergy/AdvReac Type Severity Reaction Status Date / Time No Known Allergies Allergy Verified 11/26/17 15:34 Physical Exam Vitals: Vital Signs Temp Pulse Resp BP Pulse Ox 11/28/17 10:15 94 L 11/28/17 08:19 96.9 F L 67 16 105/64 94 L 11/28/17 08:00 63 16 11/28/17 04:00 64 16 104/65 96 11/28/17 00:00 97.0 F L 55 L 16 90/57 94 L 11/27/17 20:00 97.4 F L 86 17 101/64 94 L 11/27/17 16:00 97.5 F L 65 16 99/63 99 Intake and Output 11/27/17 11/28/17 11/28/17 22:59 06:59 14:59 Intake Total 480 350 Output Total 300 Balance 180 350 Intake: Oral 480 350 Output: Urine 300 Other: Voiding Method Urinal Toilet Toilet Urinal Urinal # Voids 1 1 1 Weight 84.1 kg - Constitutional General appearance: no acute distress - EENT Eyes: EOMI, PERRLA ENT: hearing grossly normal, normal oropharynx - Neck Neck: no lymphadenopathy Thyroid: bilateral: normal size - Respiratory Respiratory: bilateral: diminished - Cardiovascular Rhythm: irregularly irregular Heart sounds: normal: S1, S2 - Gastrointestinal General gastrointestinal: normal bowel sounds, soft - Integumentary Integumentary: calor (b/l LE below knee) - Neurologic Neurologic: CNII-XII intact - Musculoskeletal Musculoskeletal: generalized weakness, strength equal bilaterally - Psychiatric Poor recall Results CBC & Chem 7: 11/28/17 05:43 11/28/17 05:43 Labs: Abnormal Lab Results - Last 24 Hours (Table) 11/27/17 11/28/17 11/28/17 Range/Units 23:32 05:43 05:43 RBC 3.60 L (4.30-5.90) m/uL Hgb 11.2 L (13.0-17.5) gm/dL Hct 35.6 L (39.0-53.0) % Plt Count 48 L* (150-450) k/uL Lymphocytes # 7.0 H (1.0-4.8) k/uL PT 12.2 H (9.0-12.0) sec INR 1.3 H (<1.2) Potassium 3.4 L (3.5-5.1) mmol/L Chloride (98-107) mmol/L Carbon Dioxide (22-30) mmol/L BUN (9-20) mg/dL Total Protein (6.3-8.2) g/dL Albumin (3.5-5.0) g/dL 11/28/17 Range/Units 05:43 RBC (4.30-5.90) m/uL Hgb (13.0-17.5) gm/dL Hct (39.0-53.0) % Plt Count (150-450) k/uL Lymphocytes # (1.0-4.8) k/uL PT (9.0-12.0) sec INR (<1.2) Potassium (3.5-5.1) mmol/L Chloride 93 L (98-107) mmol/L Carbon Dioxide 39 H (22-30) mmol/L BUN 37 H (9-20) mg/dL Total Protein 5.2 L (6.3-8.2) g/dL Albumin 3.4 L (3.5-5.0) g/dL Chest x-ray: report reviewed Assessment and Plan (1) Thrombocytopenia Narrative/Plan: 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 This is likely due to persistent marrow damage. Other causes such as an ITP are also possible. This has not been associated with any progression of his CLL. He has been asymptomatic from the same. His plt count on admission is the same as his baseline. A minor drop is noted , likely due to acue illness. There may also be an element of splenic congestion. No acute intervention is needed. I would anticipate recovery back to baseline as he improves I would recommend holding off on any anticoagulation till plt count improves to > 50 ( assuming the pt is felt to be an appropriate candidate for anticoagulation based on safety) . In the meantime ASA can be used Case was discussed with the admitting service Current Visit: Yes Status: Acute Code(s): D69.6 - THROMBOCYTOPENIA, UNSPECIFIED SNOMED Code(s): 127188491 (2) CLL (chronic lymphocytic leukemia) Narrative/Plan: The WBC is normal, with ALC only barely elevated. There is no LAD. Thus there is no evidence of progression. Current Visit: Yes Status: Acute Code(s): C91.90 - LYMPHOID LEUKEMIA, UNSPECIFIED NOT HAVING ACHIEVED REMISSION SNOMED Code(s): 36021162
[2017-11-29 06:52] LABS: HCT 37.7 % (39.0-53.0); HGB 11.9 gm/dL (13.0-17.5); MCH 31.2 pg (25.0-35.0); MCHC 31.6 g/dL (31.0-37.0); MCV 98.7 fL (80.0-100.0); Macrocytosis Slight; Mean Platelet Volume 8.1; RBC 3.82 m/uL (4.30-5.90); RDW 14.9 % (11.5-15.5); WBC 12.2 k/uL (3.8-10.6)
[2017-11-29 06:57] LABS: Platelet Count 54 k/uL (150-450)
[2017-11-29 07:06] LABS: Calcium 9.4 mg/dL (8.4-10.2); Magnesium 2.3 mg/dL (1.6-2.3); Potassium 3.5 mmol/L (3.5-5.1)
--- NOTE | 2017-11-29 08:32 | XR ---
EXAMINATION TYPE: XR chest 1V portable DATE OF EXAM: 11/29/2017 COMPARISON: 11/26/2017 HISTORY: Shortness of breath TECHNIQUE: Single frontal view of the chest is obtained. FINDINGS: There are small layering bilateral pleural effusions, similar in degree to the prior exam, left slightly greater than right. There is associated bibasilar airspace disease most likely renetta sive atelectasis. There is slight bowing of the right minor fissure and interfissural fluid. Lungs ar e hyperexpanded with biapical lucency suggesting underlying COPD. Cardiac silhouette is partially vis ualized but mildly enlarged. Osseous structures are generally demineralized. IMPRESSION: Similar-appearing small layering bilateral pleural effusions, left slightly greater than right, with associated bibasilar airspace disease that is most commonly on the basis of compressive atelectasis.
[2017-11-29] MEDS: ASPIRIN 81 MG PO SCH (09:04)
[2017-11-29] MEDS: DOXAZOSIN 4 MG TAB PO SCH (09:04)
[2017-11-29] MEDS: DOCUSATE 100 MG CAP PO SCH ×3 (09:04→21:11)
[2017-11-29] MEDS: POTASSIUM CHLORIDE ER 20 MEQ TAB.ER PO SCH (09:04)
[2017-11-29] MEDS: METOPROLOL TARTRATE 12.5 MG TAB PO SCH ×2 (09:04→21:11)
[2017-11-29] MEDS: LISINOPRIL 2.5 MG TAB PO SCH (09:04)
[2017-11-29] MEDS: METOLAZONE 5 MG TAB PO SCH (09:04)
[2017-11-29] MEDS: AMMONIUM LACTATE 12% CREAM 140 GM TUBE TOPICAL SCH ×2 (10:40→21:12)
[2017-11-29] MEDS: FUROSEMIDE 10 MG/ML 4 ML VIAL IV SCH ×2 (10:42→21:11)
--- NOTE | 2017-11-29 11:10 | CDI ---
Last Revision, July 2017 Documentation Clarification Form Date: 11/29/17 From: Bethanie Cash RN Admit Date: 11/26/2017 4:59:00 PM Patient Name: Nicholas Morillo Visit Number: [id number] ATTENTION: The Clinical Documentation Specialists (CDI) and [facility] Coding Staff appreciate your assistance in clarifying documentation. Please respond to the clarification below the line at the bottom and electronically sign. The CDI & [facility] Coding staff will review the response and follow-up if needed. Please note: Queries are made part of the Legal Health Record. If you have any questions, please contact the author of this message via ITS. Dr. Leonardo Perdomo, A diagnosis of anemia lacks specificity to accurately reflect your patients severity of condition and clarification is needed. 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, BPH, arrhythmia, chronic lower extremity edema, thrombocytopenia Clinical indicators: Hemoglobin: 12.0 Hematocrit: 36.5 Treatment: monitor labs In order to capture the severity of condition, please clarify the type of anemia and etiology if known: Acute blood loss anemia Acute on chronic blood loss anemia Chronic blood loss anemia Iron deficiency anemia Anemia due to malignancy Nutritional anemia Unable to determine Other, please specify Please continue to document in your progress notes, under the line below and / or in the bisdischarge summary in order to capture severity of illness and risk of mortality. Include clinical findings that support your diagnosis. Unable to determine MTDD
--- NOTE | 2017-11-29 12:54 | P.PN ---
Subjective Progress Note Date: 11/29/17 Principal diagnosis: Swelling Patient is an 82-year-old male with a past medical history of CLL, BPH , and atrial fibrillation who presented to the emergency department with complaints of lower extremity edema. At home he had been on Lasix and metolazone but his swelling had gotten worse. He had seen his outpatient physician approximately a month ago and was referred to cardiology. On arrival to the ER his initial vital signs were within normal limits. Laboratory analysis showed anemia with thrombocytopenia. He was also found have slight hypokalemia. His troponin was mildly elevated at 0.289. BNP was elevated at 8080 and chest x-ray showed possible pulmonary venous congestion. He was started on IV Lasix and admitted to the selective care unit. Cardiology was consulted and 2-D echocardiogram was ordered. Cardiology suggested low-dose beta georgie and awaiting echocardiogram. On the morning of 11/27 his edema had significantly improved his feeling better. Echo demonstrated Severe LVH and moderate pulmonary HTN. Cardiology had suggested eliquis, with his dementia and thrombocytopenia and history of CLL hematology was consulted and recommended no eliquis at his current plt level. PT/OT evaluated patient and plan is for SNF at discharge. Patient seen and examined at bedside. He denies any chest pain, shortness of breath, nausea or vomiting. He thinks his legs look slightly better. updated later on information. She is aware he could benefit from another 24 hours of diuresis and that he will go to residential facility on discharge. I also informed her that Dr. Desir saw patient. Objective - Vital Signs Vital signs: Vital Signs Temp 97.8 F 11/29/17 08:45 Pulse 73 11/29/17 08:45 Resp 18 11/29/17 08:45 BP 93/56 11/29/17 08:45 Pulse Ox 98 11/29/17 08:45 Intake & Output 11/28/17 11/29/17 11/29/17 18:59 06:59 18:59 Intake Total 1150 240 Output Total 200 Balance 1150 -200 240 Weight 84 kg 84.9 kg Intake: Oral 1150 240 Output: Urine 200 Other: Voiding Method Toilet Toilet Toilet Urinal Urinal Urinal # Voids 1 1 - Exam General: non toxic, mild distress, appears at stated age Derm: warm, dry, erythema and dry scaling skin b/l LE Head: atraumatic, normocephalic, symmetric Eyes: EOMI, no lid lag, anicteric sclera Mouth: no lip lesion, mucus membranes moist Cardiovascular: S1S2 reg, no murmur, positive posterior tibial pulse bilateral, Lungs: CTA bilateral, no rhonchi, no rales , no accessory muscle use Abdominal: soft, nontender to palpation, no guarding, no appreciable organomegaly Ext: no gross muscle atrophy, [place], no contractures Neuro: CN II-XI grossly intact, no focal neuro deficits Psych: Alert, oriented to self and situation, appropriate affect - Labs CBC & Chem 7: 11/29/17 06:21 11/29/17 06:21 Labs: Abnormal Lab Results - Last 24 Hours (Table) 11/29/17 11/29/17 Range/Units 06:21 06:21 WBC 12.2 H (3.8-10.6) k/uL RBC 3.82 L (4.30-5.90) m/uL Hgb 11.9 L (13.0-17.5) gm/dL Hct 37.7 L (39.0-53.0) % Plt Count 54 L (150-450) k/uL Chloride 92 L (98-107) mmol/L Carbon Dioxide 40 H* (22-30) mmol/L BUN 43 H (9-20) mg/dL Assessment and Plan Assessment: Acute exacerbation of diastolic CHF with ejection fraction 50-55%. - Lasix, strict I's and O's, daily weight - lisinopril, metoprolol - heart healthy diet - metolazone Chronic atrial fibrillation - Telel - metoprolol - No eliquis until patient Plt >50 consistently, however I would recommend against this as patient is a fall risk and had dementia. Elevated troponin - not diagnostic of cardiac ischemia - no ASA secondary to thrombocytopenia - echo without significant abnormality. Anemia and thrombocytopenia with hx of CLL, unable to determine cause - d/w pathology either likely viral exposure vs quiescent CLL - Hematology recs - no eliquis due to Plt < 50, age, and bruising currently. OK for baby ASA AST versus PFO - cardio recs BPH - doxazosin Gait disturbance - PT/OT - SNF on dishcarge Dementia - safe and supportive environment Hypokalemia, resolved DVT prophylaxis: SCDs Discussed with: Patient, , RN Anticipated discharge: [address]: SNF A total of 35 minutes was spent on the care of this complex patient more than 50 % of the time was spent in counseling and care coordination.
[2017-11-29] MEDS: FINASTERIDE 5 MG TAB PO SCH (13:39)
--- NOTE | 2017-11-29 16:11 | P.PN ---
Subjective Progress Note Date: 11/29/17 This is a pleasant 82-year-old gentleman, history is obtained from the medical records, he is quite confused, does not know why he is here does not know of his medical history. According to the medical record, patient does have a significant history for CLL previously on chemotherapy, BPH, some form of arrhythmia, not on anticoagulation, chronic lower extremity erythema and swelling. He was brought to the hospital because of significant swelling in his bilateral legs and abdomen. The patient apparently was not having any symptoms of difficulty in breathing. His chest x-ray on admission here showed bilateral pleural effusions left greater than the right, with underlying atelectasis and/or infiltrates. EKG shows atrial fibrillation with occasional PVC. Blood pressure 118/60 with a heart rate in the 70s, 92% on room air. White blood cell count 9.0, hemoglobin 12.0 on admission, 11.1 this morning. Platelet count 51 on admission, 45 this morning. Sodium 142, potassium 3.2, BUN 36, creatinine 1.0. Troponins 0.28, .039. BNP level 8080. The patient was initiated on IV Lasix in the emergency room, his weight is down 2 kg today. Continues to have a bilateral peripheral edema, according to the patient it is much better than when he came. 11/28/2017 Patient seen and examined today, continues to diurese well on IV Lasix. Hemodynamically stable. Echocardiogram with Doppler study was performed which revealed an ejection fraction of 50-55%. There is mention of an ASD versus PFO noted on the echo, we will continue current medical therapy. 11/29/2017 Patient seen and examined this morning, does not complain of feeling short of breath, hematology was consulted, who recommended at this time that patient not be on anticoagulation because of the low platelet level. Therefore the Eliquis was discontinued today and patient was started on a baby aspirin daily. Continues to have peripheral edema significantly improved. Objective - Vital Signs Vital signs: Vital Signs Temp 97.5 F L 11/29/17 12:00 Pulse 58 L 11/29/17 12:00 Resp 16 11/29/17 12:00 BP 83/52 11/29/17 12:00 Pulse Ox 95 11/29/17 12:00 Intake & Output 11/28/17 11/29/17 11/29/17 18:59 06:59 18:59 Intake Total 1150 480 Output Total 200 300 Balance 1150 -200 180 Weight 84 kg 84.9 kg Intake: Oral 1150 480 Output: Urine 200 300 Other: Voiding Method Toilet Toilet Toilet Urinal Urinal Urinal # Voids 1 1 - Exam PHYSICAL EXAMINATION: HEENT: Head is atraumatic, normocephalic. Pupils equal, round. Neck is supple. There is no elevated jugular venous pressure. HEART EXAMINATION: Heart S1 and S2 irregularly irregular a systolic murmur is heard. CHEST EXAMINATION: Lungs clear to auscultation. ABDOMEN: Soft, mild distention, nontender. Bowel sounds are heard. No organomegaly noted. EXTREMITIES:[ 2+ peripheral pulses with 1+ evidence of peripheral edema , to the lower extremities, evidence of chronic erythema and dry skin noted. NEUROLOGIC patient is awake, alert and oriented -1. . - Labs CBC & Chem 7: 11/29/17 06:21 11/29/17 06:21 Labs: Abnormal Lab Results - Last 24 Hours (Table) 11/29/17 11/29/17 Range/Units 06:21 06:21 WBC 12.2 H (3.8-10.6) k/uL RBC 3.82 L (4.30-5.90) m/uL Hgb 11.9 L (13.0-17.5) gm/dL Hct 37.7 L (39.0-53.0) % Plt Count 54 L (150-450) k/uL Chloride 92 L (98-107) mmol/L Carbon Dioxide 40 H* (22-30) mmol/L BUN 43 H (9-20) mg/dL Assessment and Plan Plan: Assessment and plan #1 Symptoms of significant bilateral lower extremity and abdominal swelling with no overt symptoms of shortness of breath, BNP elevated at 8080. Mild Congestive heart failure, diastolic acute on chronic. Chest x-ray shows bilateral pleural effusions, left greater than the right. #2 history of CLL with prior chemotherapy #3 thrombocytopenia #4 BPH #5 chronic persistent atrial fibrillation, not on anticoagulation. #6 mild troponin abnormality, patient denies chest discomfort. EKG shows atrial fibrillation with occasional PVC. #7 hypokalemia #8 dementia Plan We will continue current dose of IV Lasix for 24 hours. Because of the patient' s significant thrombocytopenia, it has been recommended by hematology to discontinue the Eliquis and continue only with a baby aspirin daily. DNP note has been reviewed, I agree with a documented findings and plan of care. Patient was seen and examined.
[2017-11-30 06:41] LABS: HCT 34.4 % (39.0-53.0); MCH 31.1 pg (25.0-35.0); MCHC 31.9 g/dL (31.0-37.0); MCV 97.6 fL (80.0-100.0); Mean Platelet Volume 7.9; RBC 3.52 m/uL (4.30-5.90); RDW 14.9 % (11.5-15.5); WBC 13.6 k/uL (3.8-10.6)
[2017-11-30 06:47] LABS: Magnesium 2.3 mg/dL (1.6-2.3); Potassium 3.3 mmol/L (3.5-5.1)
[2017-11-30 06:53] LABS: Platelet Count 49 k/uL (150-450)
[2017-11-30] MEDS ORDERED: POTASSIUM BICARBONATE/CIT AC 20 MEQ TABLET.EFF PO ONE (07:09)
[2017-11-30 07:50] LABS: Appearance,Urine Clear (Clear); Bilirubin,Urine Negative (Negative); Blood,Urine Negative (Negative); Color,Urine Light Yellow; Glucose,Urine (UA) Negative (Negative); Ketones,Urine Negative (Negative); Leukocyte Esterase,Urine Negative (Negative); Nitrite,Urine Negative (Negative); PH, Urine 7.5 (5.0-8.0); Protein,Urine Negative (Negative); Specific Gravity,Urine 1.008 (1.001-1.035); Urobilinogen,Urine <2.0 mg/dL (<2.0)
[2017-11-30] MEDS: FUROSEMIDE 10 MG/ML 4 ML VIAL IV SCH ×2 (09:33→19:58)
[2017-11-30] MEDS: DOCUSATE 100 MG CAP PO SCH ×3 (09:34→23:02)
[2017-11-30] MEDS: DOXAZOSIN 4 MG TAB PO SCH (09:34)
[2017-11-30] MEDS: LISINOPRIL 2.5 MG TAB PO SCH (09:35)
[2017-11-30] MEDS: ASPIRIN 81 MG PO SCH (09:35)
[2017-11-30] MEDS: METOLAZONE 5 MG TAB PO SCH (09:35)
[2017-11-30] MEDS: METOPROLOL TARTRATE 12.5 MG TAB PO SCH ×2 (09:36→19:58)
[2017-11-30] MEDS: AMMONIUM LACTATE 12% CREAM 140 GM TUBE TOPICAL SCH ×2 (09:38→22:28)
[2017-11-30] MEDS: POTASSIUM CHLORIDE ER 20 MEQ TAB.ER PO SCH (09:41)
--- NOTE | 2017-11-30 10:11 | P.PN ---
Subjective Progress Note Date: 11/30/17 Principal diagnosis: Swelling Patient is an 82-year-old male with a past medical history of CLL, BPH , and atrial fibrillation who presented to the emergency department with complaints of lower extremity edema. At home he had been on Lasix and metolazone but his swelling had gotten worse. He had seen his outpatient physician approximately a month ago and was referred to cardiology. On arrival to the ER his initial vital signs were within normal limits. Laboratory analysis showed anemia with thrombocytopenia. He was also found have slight hypokalemia. His troponin was mildly elevated at 0.289. BNP was elevated at 8080 and chest x-ray showed possible pulmonary venous congestion. He was started on IV Lasix and admitted to the selective care unit. Cardiology was consulted and 2-D echocardiogram was ordered. Cardiology suggested low-dose beta georgie and awaiting echocardiogram. On the morning of 11/27 his edema had significantly improved his feeling better. Echo demonstrated Severe LVH and moderate pulmonary HTN. Cardiology had suggested eliquis, with his dementia and thrombocytopenia and history of CLL hematology was consulted and recommended no eliquis at his current plt level. PT/OT evaluated patient and plan is for SNF at discharge. He developed an increasing leukocytosis and it was felt that he likely had i a pneumonia hidden by his pleural effusion. He was started on levaquin and repeat CXR is ordered. Patient seen and examined at bedside. He has no complaints today. Thinks he slept well yesterday. No nausea, vomiting, or diarrhea. States he has intermittent cough. No shortness of breath. No family present at bedside. Objective - Vital Signs Vital signs: Vital Signs Temp 97.3 F L 11/30/17 08:00 Pulse 65 11/30/17 08:00 Resp 16 11/30/17 08:00 BP 89/53 11/30/17 08:00 Pulse Ox 98 11/30/17 08:00 Intake & Output 11/29/17 11/30/17 11/30/17 18:59 06:59 18:59 Intake Total 720 Output Total 650 Balance 70 Weight 83.9 kg Intake: Oral 720 Output: Urine 650 Other: Voiding Method Toilet Toilet Urinal Urinal # Voids 4 - Exam General: non toxic, no distress, appears at stated age Derm: warm, dry, erythema and dry scaling skin b/l LE Head: atraumatic, normocephalic, symmetric Eyes: EOMI, no lid lag, anicteric sclera Mouth: no lip lesion, mucus membranes moist Cardiovascular: S1S2 reg, no murmur, positive posterior tibial pulse bilateral, Lungs: CTA bilateral, no rhonchi, no rales , no accessory muscle use Abdominal: soft, nontender to palpation, no guarding, no appreciable organomegaly Ext: no gross muscle atrophy,3+ edema no contractures Neuro: CN II-XI grossly intact, no focal neuro deficits Psych: Alert, oriented to self and situation, appropriate affect - Labs CBC & Chem 7: 11/30/17 05:49 11/30/17 05:49 Labs: Abnormal Lab Results - Last 24 Hours (Table) 11/30/17 11/30/17 Range/Units 05:49 05:49 WBC 13.6 H (3.8-10.6) k/uL RBC 3.52 L (4.30-5.90) m/uL Hgb 11.0 L (13.0-17.5) gm/dL Hct 34.4 L (39.0-53.0) % Plt Count 49 L* (150-450) k/uL Potassium 3.3 L (3.5-5.1) mmol/L Chloride 90 L (98-107) mmol/L Carbon Dioxide 39 H (22-30) mmol/L BUN 46 H (9-20) mg/dL Assessment and Plan Assessment: Acute exacerbation of diastolic CHF with ejection fraction 50-55%. - would benefit from 1 additional day of IV lasix - Lasix, strict I's and O's, daily weight - lisinopril, metoprolol - heart healthy diet - metolazone - cardio recs Increasing leukocytosis, probable PNA, possible gram negative - check CXR - UA negative - Levaquin Elevating BUN and CO 2 levels - this is due to forced diuresis and contraction alkalosis - this is an anticipated result. Chronic atrial fibrillation - Telel - metoprolol - No eliquis until patient Plt >50 consistently, however I would recommend against this as patient is a fall risk and had dementia. - ASA 81 mg Elevated troponin - not diagnostic of cardiac ischemia - no ASA secondary to thrombocytopenia - echo without significant abnormality. 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 - Hematology recs - no eliquis due to Plt < 50, age, and bruising currently. OK for baby ASA AST versus PFO - cardio recs BPH - doxazosin Gait disturbance - PT/OT - SNF on dishcarge Dementia - safe and supportive environment Hypokalemia, resolved DVT prophylaxis: SCDs Discussed with: Patient, RN Anticipated discharge: [address]: SNF A total of 35 minutes was spent on the care of this complex patient more than 50 % of the time was spent in counseling and care coordination.
--- NOTE | 2017-11-30 10:26 | XR ---
EXAMINATION TYPE: XR chest 2V DATE OF EXAM: 11/30/2017 COMPARISON: 11/29/2017 INDICATION: Pleural effusions, pneumonia TECHNIQUE: Frontal and lateral views of the chest are obtained. FINDINGS: The heart size is normal. The pulmonary vasculature is at upper limits of normal. Small bilateral pleural effusions are present. There is improvement of bibasilar infiltrates.. IMPRESSION: 1. Small bilateral pleural effusions, improving. 2. Improved aeration. Mild infiltrates remain present. Continued follow-up is recommended.
[2017-11-30] MEDS: LEVOFLOXACIN 750 MG TAB PO SCH (12:50)
[2017-11-30] MEDS: FINASTERIDE 5 MG TAB PO SCH (12:51)
--- NOTE | 2017-11-30 13:35 | P.PN ---
Subjective Progress Note Date: 11/30/17 This is a pleasant 82-year-old gentleman, history is obtained from the medical records, he is quite confused, does not know why he is here does not know of his medical history. According to the medical record, patient does have a significant history for CLL previously on chemotherapy, BPH, some form of arrhythmia, not on anticoagulation, chronic lower extremity erythema and swelling. He was brought to the hospital because of significant swelling in his bilateral legs and abdomen. The patient apparently was not having any symptoms of difficulty in breathing. His chest x-ray on admission here showed bilateral pleural effusions left greater than the right, with underlying atelectasis and/or infiltrates. EKG shows atrial fibrillation with occasional PVC. Blood pressure 118/60 with a heart rate in the 70s, 92% on room air. White blood cell count 9.0, hemoglobin 12.0 on admission, 11.1 this morning. Platelet count 51 on admission, 45 this morning. Sodium 142, potassium 3.2, BUN 36, creatinine 1.0. Troponins 0.28, .039. BNP level 8080. The patient was initiated on IV Lasix in the emergency room, his weight is down 2 kg today. Continues to have a bilateral peripheral edema, according to the patient it is much better than when he came. 11/28/2017 Patient seen and examined today, continues to diurese well on IV Lasix. Hemodynamically stable. Echocardiogram with Doppler study was performed which revealed an ejection fraction of 50-55%. There is mention of an ASD versus PFO noted on the echo, we will continue current medical therapy. 11/29/2017 Patient seen and examined this morning, does not complain of feeling short of breath, hematology was consulted, who recommended at this time that patient not be on anticoagulation because of the low platelet level. Therefore the Eliquis was discontinued today and patient was started on a baby aspirin daily. Continues to have peripheral edema significantly improved. 11/30/2017 Patient seen and examined this morning sitting up in the chair at bedside. Continues to have some peripheral edema, lungs reveal diminished air entry to bilateral bases. Chest x-ray from today does show some improvement in bilateral effusions. Plan is to continue current dose of Lasix IV for 24 hours. Objective - Vital Signs Vital signs: Vital Signs Temp 97.3 F L 11/30/17 08:00 Pulse 65 11/30/17 08:00 Resp 16 11/30/17 08:00 BP 89/53 11/30/17 08:00 Pulse Ox 98 11/30/17 08:00 Intake & Output 11/29/17 11/30/17 11/30/17 18:59 06:59 18:59 Intake Total 720 360 Output Total 650 500 Balance 70 -140 Weight 83.9 kg Intake: Oral 720 360 Output: Urine 650 500 Other: Voiding Method Toilet Toilet Toilet Urinal Urinal Urinal # Voids 4 - Exam PHYSICAL EXAMINATION: HEENT: Head is atraumatic, normocephalic. Pupils equal, round. Neck is supple. There is no elevated jugular venous pressure. HEART EXAMINATION: Heart S1 and S2 irregularly irregular a systolic murmur is heard. CHEST EXAMINATION: Lungs clear to auscultation. ABDOMEN: Soft, mild distention, nontender. Bowel sounds are heard. No organomegaly noted. EXTREMITIES:[ 2+ peripheral pulses with 1+ evidence of peripheral edema , to the lower extremities, evidence of chronic erythema and dry skin noted. NEUROLOGIC patient is awake, alert and oriented -1. . - Labs CBC & Chem 7: 11/30/17 05:49 11/30/17 05:49 Labs: Abnormal Lab Results - Last 24 Hours (Table) 11/30/17 11/30/17 Range/Units 05:49 05:49 WBC 13.6 H (3.8-10.6) k/uL RBC 3.52 L (4.30-5.90) m/uL Hgb 11.0 L (13.0-17.5) gm/dL Hct 34.4 L (39.0-53.0) % Plt Count 49 L* (150-450) k/uL Potassium 3.3 L (3.5-5.1) mmol/L Chloride 90 L (98-107) mmol/L Carbon Dioxide 39 H (22-30) mmol/L BUN 46 H (9-20) mg/dL Assessment and Plan Plan: Assessment and plan #1 Symptoms of significant bilateral lower extremity and abdominal swelling with no overt symptoms of shortness of breath, BNP elevated at 8080. Mild Congestive heart failure, diastolic acute on chronic. Chest x-ray shows bilateral pleural effusions, left greater than the right. #2 history of CLL with prior chemotherapy #3 thrombocytopenia #4 BPH #5 chronic persistent atrial fibrillation, not on anticoagulation. #6 mild troponin abnormality, patient denies chest discomfort. EKG shows atrial fibrillation with occasional PVC. #7 hypokalemia #8 dementia Plan We will continue current dose of IV Lasix for 24 hours. Plan for possible discharge home in 24 hours if stable. DNP note has been reviewed, I agree with a documented findings and plan of care. Patient was seen and examined.
[2017-12-01 07:58] LABS: HCT 36.1 % (39.0-53.0); HGB 11.5 gm/dL (13.0-17.5); MCH 31.4 pg (25.0-35.0); MCV 98.2 fL (80.0-100.0); Mean Platelet Volume 8.2; RBC 3.68 m/uL (4.30-5.90); RDW 14.9 % (11.5-15.5); WBC 11.1 k/uL (3.8-10.6)
[2017-12-01 08:05] LABS: Platelet Count 47 k/uL (150-450)
[2017-12-01 08:07] LABS: Calcium 9.1 mg/dL (8.4-10.2); Magnesium 2.2 mg/dL (1.6-2.3); Potassium 3.8 mmol/L (3.5-5.1)
--- NOTE | 2017-12-01 09:32 | P.DS ---
Providers Date of admission: 11/26/17 16:59 Expected date of discharge: 12/01/17 Attending physician: Leonardo Perdomo MD Consults: 11/26/17 16:11 Consult Physician Urgent Consulting Provider: Jonathan Mccarthy Consult Reason/Comments: chf Do you want consulting provider notified?: Yes 11/28/17 07:23 Consult Physician Routine Consulting Provider: Chris Desir Consult Reason/Comments: hx of CLL, thrombocytopenia, path called either CLL or viral Do you want consulting provider notified?: Yes Primary care physician: Liban Riggs - Discharge Diagnosis(es) (1) Acute diastolic CHF (congestive heart failure), NYHA class 3 Current Visit: Yes Status: Acute (2) Pneumonia Current Visit: Yes Status: Acute (3) Elevated BUN Current Visit: Yes Status: Acute (4) Diuresis Current Visit: Yes Status: Acute (5) Chronic a-fib Current Visit: Yes Status: Acute (6) Elevated troponin Current Visit: Yes Status: Acute (7) Anemia Current Visit: Yes Status: Acute (8) Gait disturbance Current Visit: Yes Status: Acute (9) BPH (benign prostatic hyperplasia) Current Visit: Yes Status: Acute (10) Pulmonary HTN Current Visit: Yes Status: Acute Hospital Course: Patient is an 82-year-old male with a past medical history of CLL, BPH , and atrial fibrillation who presented to the emergency department with complaints of lower extremity edema. At home he had been on Lasix and metolazone but his swelling had gotten worse. He had seen his outpatient physician approximately a month ago and was referred to cardiology. On arrival to the ER his initial vital signs were within normal limits. Laboratory analysis showed anemia with thrombocytopenia. He was also found have slight hypokalemia. His troponin was mildly elevated at 0.289. BNP was elevated at 8080 and chest x-ray showed possible pulmonary venous congestion. He was started on IV Lasix and admitted to the selective care unit. Cardiology was consulted and 2-D echocardiogram was ordered. Cardiology suggested low-dose beta georgie and awaiting echocardiogram. On the morning of 11/27 his edema had significantly improved his feeling better. Echo demonstrated Severe LVH and moderate pulmonary HTN. Cardiology had suggested eliquis, with his dementia and thrombocytopenia and history of CLL hematology was consulted and recommended no eliquis at his current plt level. PT/OT evaluated patient and plan is for SNF at discharge. He developed an increasing leukocytosis and it was felt that he likely had a pneumonia hidden by his pleural effusion. He was started on levaquin and repeat CXR showed infiltrates. He white count decreased and he was determined stable for discharge. He will complete a course of Levaquin. His lasix was increased to twice daily. He will complete rehab at [facility]. He will see cardiology in 1-2 weeks. Patient seen and examined at bedside. No chest pain, SOB, nausea, or vomiting. A and O to self. Vital signs reviewed and stable. General: non toxic, no distress, appears at stated age Derm: warm, dry, erythem without warmth b/l legs- with skin slough Head: atraumatic, normocephalic, symmetric Eyes: EOMI, no lid lag, anicteric sclera Mouth: no lip lesion, mucus membranes moist Cardiovascular: S1S2 irreg, no murmur, positive posterior tibial pulse bilateral , Lungs: CTA bilateral, no rhonchi, no rales , no accessory muscle use Abdominal: soft, nontender to palpation, no guarding, no appreciable organomegaly Ext: no gross muscle atrophy, 3+ edema improved from diffuse anasarca, no contractures Neuro: CN II-XI grossly intact, no focal neuro deficits Psych: Alert, oriented to self, appropriate affect A total of 45 minutes of time were spent preparing this complex discharge summary . Pertinent Studies: Echo-severe LVH, ejection fraction 50-55%, severely dilated left atrium, ASD versus PFO, moderate pulmonary hypertension with RVSP 52.57 Patient Condition at Discharge: Serious Plan - Discharge Summary Discharge Rx Participant: No New Discharge Prescriptions: New Ammonium Lactate Cream [Lac-Hydrin 12% Cream] 1 applic TOPICAL BID cream Aspirin 81 mg PO DAILY chew Furosemide [Lasix] 40 mg PO BID #60 tablet Levofloxacin [Levaquin] 750 mg PO DAILY 6 Days tab Lisinopril [Zestril] 2.5 mg PO DAILY tab Metoprolol Tartrate [Lopressor] 12.5 mg PO BID tab Potassium Chloride ER [K-Dur 20] 20 meq PO DAILY tab.er.prt Continue Finasteride [Proscar] 5 mg PO DAILY@1200 Doxazosin Mesylate 8 mg PO DAILY Docusate [Colace] 100 mg PO TID Metolazone [Zaroxolyn] 5 mg PO DAILY Discontinued Furosemide [Lasix] 40 mg PO DAILY Discharge Medication List Docusate [Colace] 100 mg PO TID 11/26/17 [History] Doxazosin Mesylate 8 mg PO DAILY 11/26/17 [History] Finasteride [Proscar] 5 mg PO DAILY@1200 11/26/17 [History] Metolazone [Zaroxolyn] 5 mg PO DAILY 11/26/17 [History] Ammonium Lactate Cream [Lac-Hydrin 12% Cream] 1 applic TOPICAL BID cream [Rx] Aspirin 81 mg PO DAILY chew 12/01/17 [Rx] Furosemide [Lasix] 40 mg PO BID #60 tablet 12/01/17 [Rx] Levofloxacin [Levaquin] 750 mg PO DAILY 6 Days tab 12/01/17 [Rx] Lisinopril [Zestril] 2.5 mg PO DAILY tab 12/01/17 [Rx] Metoprolol Tartrate [Lopressor] 12.5 mg PO BID tab 12/01/17 [Rx] Potassium Chloride ER [K-Dur 20] 20 meq PO DAILY tab.er.prt 12/01/17 [Rx] Follow up Appointment(s)/Referral(s): [facility] [Provider Group] - 1 Week Liban Riggs MD [Primary Care Provider] - 1-2 days Patient Instructions/Handouts: Heart Failure (DC), Safe Use of Anticoagulants ( DC) Activity/Diet/Wound Care/Special Instructions: No Eliquis on discharge Heart healthy diet, 2L fluid restriction Activity as tolerated CBC in 1 week DX: thrombocytopenia Chest X-ray in 1 week DX: Pneumonia Fall precautions Discharge Disposition: TRANSFER TO SNF/ECF
[2017-12-01] MEDS: DOCUSATE 100 MG CAP PO SCH ×3 (10:36→20:37)
[2017-12-01] MEDS: LEVOFLOXACIN 750 MG TAB PO SCH (10:36)
[2017-12-01] MEDS: ASPIRIN 81 MG PO SCH (10:36)
[2017-12-01] MEDS: POTASSIUM CHLORIDE ER 20 MEQ TAB.ER PO SCH (10:37)
[2017-12-01] MEDS: METOLAZONE 5 MG TAB PO SCH (10:45)
[2017-12-01] MEDS: DOXAZOSIN 4 MG TAB PO SCH (10:45)
[2017-12-01] MEDS: FUROSEMIDE 10 MG/ML 4 ML VIAL IV SCH (10:50)
[2017-12-01] MEDS: METOPROLOL TARTRATE 12.5 MG TAB PO SCH ×2 (10:50→20:36)
[2017-12-01] MEDS: LISINOPRIL 2.5 MG TAB PO SCH (10:50)
[2017-12-01] MEDS: AMMONIUM LACTATE 12% CREAM 140 GM TUBE TOPICAL SCH ×2 (10:51→20:35)
--- NOTE | 2017-12-01 11:20 | P.PN ---
Subjective Progress Note Date: 12/01/17 Principal diagnosis: Swelling Patient is an 82-year-old male with a past medical history of CLL, BPH , and atrial fibrillation who presented to the emergency department with complaints of lower extremity edema. At home he had been on Lasix and metolazone but his swelling had gotten worse. He had seen his outpatient physician approximately a month ago and was referred to cardiology. On arrival to the ER his initial vital signs were within normal limits. Laboratory analysis showed anemia with thrombocytopenia. He was also found have slight hypokalemia. His troponin was mildly elevated at 0.289. BNP was elevated at 8080 and chest x-ray showed possible pulmonary venous congestion. He was started on IV Lasix and admitted to the selective care unit. Cardiology was consulted and 2-D echocardiogram was ordered. Cardiology suggested low-dose beta georgie and awaiting echocardiogram. On the morning of 11/27 his edema had significantly improved his feeling better. Echo demonstrated Severe LVH and moderate pulmonary HTN. Cardiology had suggested eliquis, with his dementia and thrombocytopenia and history of CLL hematology was consulted and recommended no eliquis at his current plt level. PT/OT evaluated patient and plan is for SNF at discharge. He developed an increasing leukocytosis and it was felt that he likely had a pneumonia hidden by his pleural effusion. He was started on levaquin and repeat CXR confirmed infiltrates. He had a 21 beat run of V-tach overnight on 11/30. His medications were adjusted by cardiology. Patient seen and examined at bedside. He has no complaints, still A and O X 1. No chest pain, SOB, nausea, or vomiting. Thinks legs look better. No family present at bedside. Nursing present at bedside. Objective - Vital Signs Vital signs: Vital Signs Temp 97.5 F L 12/01/17 07:25 Pulse 64 12/01/17 07:25 Resp 16 12/01/17 07:25 BP 102/67 12/01/17 07:25 Pulse Ox 96 12/01/17 07:25 Intake & Output 11/30/17 12/01/17 12/01/17 18:59 06:59 18:59 Intake Total 960 Output Total 800 300 Balance 160 -300 Weight 83.6 kg Intake: Oral 960 Output: Urine 800 300 Other: Voiding Method Toilet Toilet Urinal Urinal # Voids 1 - Labs CBC & Chem 7: 12/01/17 07:13 12/01/17 07:13 Labs: Abnormal Lab Results - Last 24 Hours (Table) 12/01/17 12/01/17 Range/Units 07:13 07:13 WBC 11.1 H (3.8-10.6) k/uL RBC 3.68 L (4.30-5.90) m/uL Hgb 11.5 L (13.0-17.5) gm/dL Hct 36.1 L (39.0-53.0) % Plt Count 47 L* (150-450) k/uL Chloride 90 L (98-107) mmol/L Carbon Dioxide 38 H (22-30) mmol/L BUN 46 H (9-20) mg/dL Assessment and Plan Assessment: Acute exacerbation of diastolic CHF with ejection fraction 50-55%. - IV to PO lasix - Lasix, strict I's and O's, daily weight - lisinopril (held for low BP), metoprolol - heart healthy diet - metolazone - cardio recs 21 beat run of V tach - cardio recs - continue metoprolol, added amiodarone Pneumonia, possible gram negative - repeat CXR in 1 week - Levaquin Elevating BUN and CO 2 levels - this is due to forced diuresis and contraction alkalosis - this is an anticipated result. Chronic atrial fibrillation - Telel - metoprolol - No eliquis until patient Plt >50 consistently, however I would recommend against this as patient is a fall risk and had dementia. - ASA 81 mg Elevated troponin - not diagnostic of cardiac ischemia - no ASA secondary to thrombocytopenia - echo without significant abnormality. 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 Can be followed by PCP as outpatient - Hematology recs - no eliquis due to Plt < 50, age, and bruising currently. OK for baby ASA AST versus PFO - cardio recs BPH - doxazosin Gait disturbance - PT/OT - SNF on [facility] Dementia - safe and supportive environment Hypokalemia, resolved DVT prophylaxis: SCDs Discussed with: Patient, RN Anticipated discharge: [address]: SNF A total of 35 minutes was spent on the care of this complex patient more than 50 % of the time was spent in counseling and care coordination.
--- NOTE | 2017-12-01 12:07 | P.PN ---
Subjective Progress Note Date: 12/01/17 Mr. Morillo is a pleasant 82-year-old male past medical history significant for CLL, BPH, atrial fibrillation not on fisher anticoagulation, dementia and BPH. He is currently being treated for a mild exacerbation of diastolic heart failure with IV lasix. Telemetry tracings reveal he has a 3 instances of non-sustained ventricular tachycardia since admission. The last one being at 0440 this morning. He states he was sleeping at the time and cannot verbalize symptoms. Per nursing staff he was asymptomatic. Laboratory data reviewed, WBC 11.1, hemoglobin 11.5, platelets 47, potassium 3.8, magnesium 2.2, creatinine 1.13. Blood pressure 102/67 heart rate 64 afebrile maintaining oxygen saturation on room air. Chest x-ray yesterday revealed small bilateral pleural effusions that are improving with mild infiltrates still present. He is currently being maintained on aspirin, Cardura, Lasix IV, lisinopril, Lopressor and potassium supplementation. He continues to have ongoing lower extremity edema although he claims that this is chronic. His weight is down to 83.6 kg from 88.9 on admission. Objective - Vital Signs Vital signs: Vital Signs Temp 97.5 F L 12/01/17 07:25 Pulse 64 12/01/17 07:25 Resp 16 12/01/17 07:25 BP 102/67 12/01/17 07:25 Pulse Ox 96 12/01/17 07:25 Intake & Output 11/30/17 12/01/17 12/01/17 18:59 06:59 18:59 Intake Total 960 Output Total 800 300 Balance 160 -300 Weight 83.6 kg Intake: Oral 960 Output: Urine 800 300 Other: Voiding Method Toilet Toilet Toilet Urinal Urinal Urinal # Voids 1 - Exam GENERAL: Well-appearing, well-nourished and in no acute distress. NECK: Supple without JVD or thyromegaly. LUNGS: Breath sounds clear to auscultation bilaterally. Respiration equal and unlabored. No wheezes, rales or rhonchi. Diminished bilaterally. HEART: Irregular rate and rhythm with systolic murmur at the base, rubs or gallops. S1 and S2 heard. EXTREMITIES: Normal range of motion, 1+ pitting bilateral lower extremity edema. No clubbing or cyanosis. Peripheral pulses intact. Lower extremity with chronic discoloration. - Labs CBC & Chem 7: 12/01/17 07:13 12/01/17 07:13 Labs: Abnormal Lab Results - Last 24 Hours (Table) 12/01/17 12/01/17 Range/Units 07:13 07:13 WBC 11.1 H (3.8-10.6) k/uL RBC 3.68 L (4.30-5.90) m/uL Hgb 11.5 L (13.0-17.5) gm/dL Hct 36.1 L (39.0-53.0) % Plt Count 47 L* (150-450) k/uL Chloride 90 L (98-107) mmol/L Carbon Dioxide 38 H (22-30) mmol/L BUN 46 H (9-20) mg/dL Assessment and Plan Assessment: ASSESSMENT 1. Acute on chronic diastolic heart failure, improving 2. Nonsustained ventricular tachycardia 3. Chronic persistent atrial fibrillation, anticoagulation contraindicated secondary to thrombocytopenia 4. History of CLL with prior chemotherapy 5. Thrombocytopenia 6. Dementia 7. Hypokalemia, resolved PLAN From cardiology's perspective we recommend transitioning to oral diuretics. Initiate the patient on amiodarone 200 mg twice a day for nonsustained ventricular tachycardia. Liver enzymes are normal. Discussed with primary discontinuation of Levaquin and they will make those changes. Ongoing telemetry monitoring. We will continue to follow this patient. The above impression and plan of care have been discussed and directed by the signing physician. Chayo Betancourt, nurse practitioner, acting as scribe for signing physician.
[2017-12-01] MEDS: FINASTERIDE 5 MG TAB PO SCH (12:32)
[2017-12-01] MEDS: AMIODARONE 200 MG TAB PO SCH ×2 (12:33→20:35)
[2017-12-01] MEDS: FUROSEMIDE 40 MG TAB PO SCH (17:48)
[2017-12-01] MEDS: AMOXIC-POT CLAV 875-125MG 1 EACH TAB PO SCH (20:36)
[2017-12-02] MEDS ORDERED: DOXYCYCLINE MONOHYDRATE 100 MG CAPSULE PO SCH (09:00)
[2017-12-02 09:06] VITALS: BP 107/60; PULSE 66; RESP 12; TEMP 96.8
[2017-12-02] MEDS: METOPROLOL TARTRATE 12.5 MG TAB PO SCH (09:09)
[2017-12-02] MEDS: AMMONIUM LACTATE 12% CREAM 140 GM TUBE TOPICAL SCH (09:09)
[2017-12-02] MEDS: AMIODARONE 200 MG TAB PO SCH (09:10)
[2017-12-02] MEDS: DOXAZOSIN 4 MG TAB PO SCH ×2 (09:10→09:13)
[2017-12-02] MEDS: DOCUSATE 100 MG CAP PO SCH (09:10)
[2017-12-02] MEDS: AMOXIC-POT CLAV 875-125MG 1 EACH TAB PO SCH (09:10)
[2017-12-02] MEDS: ASPIRIN 81 MG PO SCH (09:10)
[2017-12-02] MEDS: METOLAZONE 5 MG TAB PO SCH ×2 (09:10→09:13)
[2017-12-02] MEDS: POTASSIUM CHLORIDE ER 20 MEQ TAB.ER PO SCH (09:10)
[2017-12-02] MEDS: FUROSEMIDE 40 MG TAB PO SCH (09:12)
--- NOTE | 2017-12-02 10:48 | P.DS ---
Providers Date of admission: 11/26/17 16:59 Expected date of discharge: 12/02/17 Attending physician: Leonardo Perdomo MD Consults: 11/26/17 16:11 Consult Physician Urgent Consulting Provider: Jonathan Mccarthy Consult Reason/Comments: chf Do you want consulting provider notified?: Yes 11/28/17 07:23 Consult Physician Routine Consulting Provider: Chris Desir Consult Reason/Comments: hx of CLL, thrombocytopenia, path called either CLL or viral Do you want consulting provider notified?: Yes Primary care physician: Liban Riggs - Discharge Diagnosis(es) (1) Acute diastolic CHF (congestive heart failure), NYHA class 3 Current Visit: Yes Status: Acute (2) Pneumonia Current Visit: Yes Status: Acute (3) Chronic a-fib Current Visit: Yes Status: Chronic (4) Thrombocytopenia Current Visit: Yes Status: Acute (5) Elevated troponin Current Visit: Yes Status: Acute (6) Diuresis Current Visit: Yes Status: Acute (7) Anemia Current Visit: Yes Status: Acute (8) Pulmonary HTN Current Visit: Yes Status: Acute (9) BPH (benign prostatic hyperplasia) Current Visit: Yes Status: Acute (10) Gait disturbance Current Visit: Yes Status: Acute (11) CLL (chronic lymphocytic leukemia) Current Visit: Yes Status: Resolved Hospital Course: Patient is an 82-year-old male with a past medical history of CLL, BPH , and atrial fibrillation who presented to the emergency department with complaints of lower extremity edema. At home he had been on Lasix and metolazone but his swelling had gotten worse. He had seen his outpatient physician approximately a month ago and was referred to cardiology. On arrival to the ER his initial vital signs were within normal limits. Laboratory analysis showed anemia with thrombocytopenia. He was also found have slight hypokalemia. His troponin was mildly elevated at 0.289. BNP was elevated at 8080 and chest x-ray showed possible pulmonary venous congestion. He was started on IV Lasix and admitted to the selective care unit. Cardiology was consulted and 2-D echocardiogram was ordered. Cardiology suggested low-dose beta georgie and awaiting echocardiogram. On the morning of 11/27 his edema had significantly improved his feeling better. Echo demonstrated Severe LVH and moderate pulmonary HTN. Cardiology had suggested eliquis, with his dementia and thrombocytopenia and history of CLL hematology was consulted and recommended no eliquis at his current plt level. PT/OT evaluated patient and plan is for SNF at discharge. He developed an increasing leukocytosis and it was felt that he likely had a pneumonia hidden by his pleural effusion. He was started on levaquin and repeat CXR showed infiltrates. He white count decreased and he was determined stable for discharge. However he developed a 21 beat run of V-tach. He was started on amio by cardiology and his antibiotics were transitioned to augment and doxycycline. He did not have any recurrent NSVT and was determined stable for discharge. He will need a repeat CBC, BMP, and CXR next week. He will follow-up with cardiology in 1 week. Patient seen and examined at bedside. Thinks that he slept well. No chest pain, SOB, nausea, or vomiting. A and O to self. Vital signs reviewed and stable. General: non toxic, no distress, appears at stated age Derm: warm, dry, erythem without warmth b/l legs- with skin slough Head: atraumatic, normocephalic, symmetric Eyes: EOMI, no lid lag, anicteric sclera Mouth: no lip lesion, mucus membranes moist Cardiovascular: S1S2 irreg, no murmur, positive posterior tibial pulse bilateral , Lungs: CTA bilateral, no rhonchi, no rales , no accessory muscle use Abdominal: soft, nontender to palpation, no guarding, no appreciable organomegaly Ext: no gross muscle atrophy, 3+ edema improved from diffuse anasarca, no contractures Neuro: CN II-XI grossly intact, no focal neuro deficits Psych: Alert, oriented to self, appropriate affect A total of 45 minutes of time were spent preparing this complex discharge summary . Pertinent Studies: Echo-severe LVH, ejection fraction 50-55%, severely dilated left atrium, ASD versus PFO, moderate pulmonary hypertension with RVSP 52.57 Patient Condition at Discharge: Stable Plan - Discharge Summary Discharge Rx Participant: No New Discharge Prescriptions: New Ammonium Lactate Cream [Lac-Hydrin 12% Cream] 1 applic TOPICAL BID cream Aspirin 81 mg PO DAILY chew Furosemide [Lasix] 40 mg PO BID #60 tablet Lisinopril [Zestril] 2.5 mg PO DAILY tab Metoprolol Tartrate [Lopressor] 12.5 mg PO BID tab Potassium Chloride ER [K-Dur 20] 20 meq PO DAILY tab.er.prt Amiodarone [Cordarone] 200 mg PO BID tab Amoxic-Pot Clav 875-125Mg [Augmentin 875-125] 1 each PO Q12HR 5 Days tab Doxycycline Monohydrate [Vibramycin] 100 mg PO DAILY 5 Days capsule Metolazone [Zaroxolyn] 2.5 mg PO DAILY #30 tablet Continue Finasteride [Proscar] 5 mg PO DAILY@1200 Doxazosin Mesylate 8 mg PO DAILY Docusate [Colace] 100 mg PO TID Discontinued Furosemide [Lasix] 40 mg PO DAILY Metolazone [Zaroxolyn] 5 mg PO DAILY Discharge Medication List Docusate [Colace] 100 mg PO TID 11/26/17 [History] Doxazosin Mesylate 8 mg PO DAILY 11/26/17 [History] Finasteride [Proscar] 5 mg PO DAILY@1200 11/26/17 [History] Ammonium Lactate Cream [Lac-Hydrin 12% Cream] 1 applic TOPICAL BID cream [Rx] Aspirin 81 mg PO DAILY chew 12/01/17 [Rx] Furosemide [Lasix] 40 mg PO BID #60 tablet 12/01/17 [Rx] Lisinopril [Zestril] 2.5 mg PO DAILY tab 12/01/17 [Rx] Metoprolol Tartrate [Lopressor] 12.5 mg PO BID tab 12/01/17 [Rx] Potassium Chloride ER [K-Dur 20] 20 meq PO DAILY tab.er.prt 12/01/17 [Rx] Amiodarone [Cordarone] 200 mg PO BID tab 12/02/17 [Rx] Amoxic-Pot Clav 875-125Mg [Augmentin 875-125] 1 each PO Q12HR 5 Days tab [Rx] Doxycycline Monohydrate [Vibramycin] 100 mg PO DAILY 5 Days capsule 12/02/17 [ Rx] Metolazone [Zaroxolyn] 2.5 mg PO DAILY #30 tablet 12/02/17 [Rx] Follow up Appointment(s)/Referral(s): Angely Ray MD [STAFF PHYSICIAN] - 1 Week Liban Riggs MD [Primary Care Provider] - 1-2 days Patient Instructions/Handouts: Heart Failure (DC), Safe Use of Anticoagulants ( DC) Activity/Diet/Wound Care/Special Instructions: No Eliquis on discharge Heart healthy diet, 2L fluid restriction Activity as tolerated CBC in 1 week DX: thrombocytopenia Chest X-ray in 1 week DX: Pneumonia Fall precautions Discharge Disposition: TRANSFER TO SNF/ECF
== END 2017-12-02 14:25 | DRG 291 ==
LOC: EC 14:36 → 6SEL 16:24 → OBSVTOIN 16:59 → 6SEL 11-30 18:42 → 5MS5E 12-01 00:38
PROVIDERS: ADMIT Internal Medicine; ATTEND Internal Medicine
DX: I50.33 Acute on chronic diastolic (congestive) heart failure (principal); J15.6 Pneumonia due to other Gram-negative bacteria; I47.2 Ventricular tachycardia; E87.3 Alkalosis; D69.6 Thrombocytopenia, unspecified; I27.22 Pulmonary hypertension due to left heart disease; J44.0 Chronic obstructive pulmonary disease with (acute) lower respiratory infection; I48.2 Chronic atrial fibrillation; J44.1 Chronic obstructive pulmonary disease with (acute) exacerbation; C91.11 Chronic lymphocytic leukemia of B-cell type in remission; N40.0 Benign prostatic hyperplasia without lower urinary tract symptoms; R77.8 Other specified abnormalities of plasma proteins; D64.9 Anemia, unspecified; R26.9 Unspecified abnormalities of gait and mobility; E87.6 Hypokalemia; F03.90 Unspecified dementia, unspecified severity, without behavioral disturbance, psychotic disturbance, mood disturbance, and anxiety; R01.1 Cardiac murmur, unspecified; I49.3 Ventricular premature depolarization; I44.7 Left bundle-branch block, unspecified; Z82.49 Family history of ischemic heart disease and other diseases of the circulatory system; Z82.3 Family history of stroke; Z79.899 Other long term (current) drug therapy; Z92.21 Personal history of antineoplastic chemotherapy; Z91.81 History of falling
CPT/HCPCS: 36415; 71045; 71046; 80048; 80053; 80061; 81003; 82550; 82553; 83735; 83880; 84100; 84132; 84484; 85025; 85027; 85610; 85730; 93005; 93306; 94760; 96374; 99285